=== PATIENT | male | born 1955 | race Caucasian/White ===

== ENCOUNTER 2016-11-29 05:38 | Observation (INO) ==
[2016-11-29] MEDS ORDERED: *HR* OxyCODONE/APAP 5/325 TABLET PO PRN ×2 (07:37→17:00)
[2016-11-29] MEDS ORDERED: Naloxone 0.4 MG/ML INJ IVP PRN ×2 (07:37→17:00)
[2016-11-29] MEDS ORDERED: *HR* Morphine 2 MG/ML SYRINGE IVP PRN ×2 (07:37→17:00)
[2016-11-29] MEDS ORDERED: Ondansetron 4 MG/2 ML VIAL IVP PRN ×2 (07:37→17:00)
[2016-11-29] MEDS ORDERED: *HR* Promethazine 25 MG/ML VIAL IVP PRN ×2 (07:37→17:00)
[2016-11-29] MEDS ORDERED: *HR* HYDROmorphone 2 MG/ML SYRINGE IVP PRN ×2 (07:37→17:00)
[2016-11-29] MEDS ORDERED: 0.9 % Sodium Chloride 1,000 ML IVC SCH (07:45)
--- NOTE | 2016-11-29 13:12 | Urology History & Physical ---
Date of Encounter: 11/29/16 Time of Encounter: 13:10 Assessment and Plan (1) Acute retention of urine Current Visit: No Status: Acute (2) Blood clot in bladder Current Visit: No Status: Acute I personally reviewed CT scan images. It does appear he has a large to moderate volume of clot in his bladder. The images are very grainy based on his size. I discussed placing a hematuria catheter at the bedside and attempted to irrigate the residual clot. States he's not comfortable with this plan is he experienced significant discomfort with the placement of the catheter in the emergency room. We'll proceed with an operating room cystoscopy, clot evacuation, fulguration. Hopefully we will be able to determine the etiology for the gross hematuria. We did discuss the potential for a urothelial malignancy History of Present Illness Chief complaint: gross hematuria. HPI: Mr. Mullen is a 61 year old male admitted to urology service currently after transfer from [place] emergency room with clot retention. Patient states he suddenly developed gross dark bloody urine yesterday. With clots. Unable to void. Catheter placed with return of large volume of bloody urine. Attempted to irrigate clots at the emergency room but unsuccessful. Transferred for higher acuity care. Patient reports she had one episode of gross hematuria approximately 1 year ago but it was not worked up. CT stone protocol was negative except for likely clots within the bladder. Patient reports no anticoagulation use except for aspirin. Possible history kidney stones. No history of urologic malignancy Past Med Surg Social Fam HX - Past Medical History Medical history: asthma, COPD, diabetes, hypertension, other Psychiatric history: anxiety, depression - Past Surgical History Surgical History: other - Social History Smoking Status: Former smoker Smokeless Tobacco Status: No Alcohol use: none Drug use: none - Family History Father Hx Family Cardiac Disorders: Yes (heart attack) Brother Living Status: Hx Family Cardiac Disorders: Yes (heart attack) Medications and Allergies Metformin [Glucophage] 500 mg PO BID #0 02/17/16 [History] Levothyroxine [Synthroid] 250 mcg PO DAILY 08/14/16 [History] Aspirin 81 mg PO DAILY 30 Days 08/17/16 [Rx] Metoprolol [Lopressor] 25 mg PO BID 30 Days 08/17/16 [Rx] Atorvastatin [Lipitor] 40 mg PO DAILY 11/29/16 [History] Allergies No Known Allergies Allergy (Verified 02/17/16 01:55) Review of Systems - Constitutional no chills, no fever(s) - EENT Nose, mouth and throat: no dizziness - Cardiovascular no chest pain - Respiratory no cough - Gastrointestinal abdominal pain - Genitourinary hematuria, urinary hesitancy - Integumentary no erythema - Neurological no confusion - Psychiatric no anxiety - Hematologic/Lymphatic no easy bleeding - Allergic/Immunologic no throat swelling Exam Initial Vital Signs Temp Pulse Resp BP Pulse Ox 97.7 F 80 17 104/71 92 L 11/29/16 07:38 11/29/16 07:38 11/29/16 07:38 11/29/16 07:38 11/29/16 07:38 - General physical appearance Present: well developed, no distress - Eyes Present: PERRL - ENT Present: normal nares - Neck Present: no masses - Respiratory Present: normal respiratory effort - Abdomen Abdomen: Present: soft - Genitourinary normal penis with no external lesions Urethral meatis: Present: patent, other (Brasher catheter in place. [address]- [address]. Dark hematuria. Able to irrigate some blackish clot but not a significant amount.) - Integumentary Present: no rash - Neurologic Present: normal coordination. Absent: disoriented, confused Urology Results - Labs Abnormal lab results POC Glucose 133 (58-89) H 11/29/16 07:58 All other labs normal.
--- NOTE | 2016-11-29 16:05 | Anesthesia Evaluation PreOp ---
Date of Encounter: 11/29/16 Time of Encounter: 16:10 - Past History Planned Operation: Evacuation of Bladder Clot Cardiac History: HTN, Hyperlipidemia Pulmonary History: Asthma, COPD CABLE RIGGER History: Denies Any Significant HX Other Medical History: Diabetes Type II, Thyroid Anesthesia History: No Prior Anesthetic Complications Alcohol Use: none Drug use: none Medications and Allergies Metformin [Glucophage] 500 mg PO BID #0 02/17/16 [History] Levothyroxine [Synthroid] 250 mcg PO DAILY 08/14/16 [History] Aspirin 81 mg PO DAILY 30 Days 08/17/16 [Rx] Metoprolol [Lopressor] 25 mg PO BID 30 Days 08/17/16 [Rx] Atorvastatin [Lipitor] 40 mg PO DAILY 11/29/16 [History] Allergies No Known Allergies Allergy (Verified 02/17/16 01:55) - Meds/Allergy Pre-op Review Medications Reviewed: Yes Allergies Reviewed: Yes Beta Blockers on Current Med List: Yes (Not given due to bleeding) Anesthesia Results - Labs Laboratory Tests 11/29/16 11/29/16 11/29/16 02:54 02:54 02:54 Hgb 12.7 L Hct 39.7 Plt Count 203 PT 12.7 H INR 1.2 Sodium 138 Potassium 4.3 BUN 19 Creatinine 0.83 - Imaging EKG: report reviewed (Sinus Tach woth occ PVC) Additional studies: Heart Cath done for abnormal stress test EF 60% minimal CAD Anesthesia Exam O2 Sat Height 1.96 m Weight 181.8 kg O2 Sat by Pulse Oximetry 94 O2 Sat by Pulse Oximetry 92 Vital Signs Temp Pulse Resp BP Pulse Ox 97.7 F 80 17 104/71 92 L 11/29/16 07:38 11/29/16 07:38 11/29/16 07:38 11/29/16 07:38 11/29/16 07:38 Height: 6'5 Weight: 400 lbs NPO (# of Hours): MN Pain Scale: 1 - HEENT Pupil (Motor): Pupils equal, EOMI Mallampati: III Teeth: Missing Oral Opening: Less than or equal to 3 - CABLE RIGGER LOC: Oriented CABLE RIGGER Motor: Normal RUE, Normal LUE, Normal RLE, Normal LLE, Normal Face CABLE RIGGER Sensory: Normal: RUE, LUE, RLE, LLE, Face - Cardiac Rhythm: Regular Murmur: None JVD: No Carotid Bruit: No - Pulmonary Breath Sounds: bilateral Clear Respiratory Effort: Symmetrical Anesthesia Assess/Plan ASA Score: 3 (HTN Asthma DM) Modified Citlaly Scale for Level of Consciousness: Cooperative, oriented, and tranquil Anesthetic Plan: General Monitoring Plan: Standard Monitors Recovery Plan: PACU (Discussed GA, agrees to proceed)
[2016-11-29] MEDS ORDERED: Albuterol 2.5 MG/3 ML NEBULIZER IH ONE ×2 (16:13→17:00)
[2016-11-29] MEDS ORDERED: Ringers Solution, Lactated 1,000 ML IVC SCH ×2 (16:15→17:00)
[2016-11-29] MEDS ORDERED: *HR* FentaNYL (PF) 100 MCG/2 ML VIAL ONE (16:19)
[2016-11-29] MEDS ORDERED: *HR* Midazolam HCl 2 MG/2 ML VIAL ONE (16:19)
[2016-11-29] MEDS ORDERED: *HR* Propofol 200 MG/20 ML VIAL IVP ONE ×2 (16:20→16:44)
[2016-11-29] MEDS ORDERED: Dextrose Gel 15 GM PO PRN ×2 (17:00)
[2016-11-29] MEDS ORDERED: D5% in Water 1,000 ML IV PRN (17:00)
[2016-11-29] MEDS ORDERED: *HR* Dextrose 50 % in Water (Syg) 50 ML SYRINGE IVP PRN (17:00)
[2016-11-29] MEDS ORDERED: *HR* HYDROmorphone (PF) 1 MG/ML SYRINGE IVP PRN (17:20)
[2016-11-29] MEDS ORDERED: Ondansetron 4 MG/2 ML VIAL IVP ONE (17:20)
[2016-11-29] MEDS ORDERED: *HR* Labetalol 100 MG/20 ML MDV IVP PRN (17:20)
[2016-11-29] MEDS ORDERED: Ipratropium/Albuterol Neb 3 ML ONE (17:25)
--- NOTE | 2016-11-29 17:50 | Anesthesia Evaluation Post Op ---
Date of Encounter: 11/29/16 Time of Encounter: 17:50 - Vital Signs Vital Signs: Vital Signs/O2 Sat/Glucose, Most Current Temp Pulse Resp BP Pulse Ox 11/29/16 17:35 85 16 90/68 93 L 11/29/16 17:25 97.3 F L 84 16 99/36 97 - Lungs Lungs: Clear Ascult./Percussion - Airway Airway: Non-obstructed - Cardiovascular Regular Rate - Mental Status Mental Status: Alert & Oriented, Answers Appropriately - Pain Pain Scale: 0 - Nausea Vomiting Nausea Vomiting: Not Present - Hydration Hydration: Ice chips - Discharge PostOp Status: Transfer Patient to floor
[2016-11-29] MEDS: 0.9 % Sodium Chloride 1,000 ML IVC SCH (18:33)
[2016-11-29] MEDS: Insulin LISPRO 300 UNITS/3 ML VIAL SQ SCH (18:35)
--- NOTE | 2016-11-29 20:13 | Operative Note ---
Date of procedure: 11/29/16 Pre-op diagnosis: Clot retention Post-op diagnosis: same Procedure: ystoscopy with clot evacuation, fulguration of the prostate, incision of bladder neck Anesthesia: GETA Surgeon: Sergio Marie Estimated blood loss (cc): 10 Specimen: None Condition: stable Disposition: PACU Procedure in Detail: PROCEDURE IN DETAIL: Patient was taken back to the operating room, positioned supine on the operating table. Anesthesia was applied without complication. They were moved into dorsal lithotomy. Careful attention was maintained to cushion all pressure points for patient's safety. They were prepped and draped in sterile fashion. Time-out was performed with the proper patient and procedure. A 24 Lao resectoscope with visual obturator was inserted into the bladder. Patient had a fairly large prostate but extremely elevated bladder neck. I had difficulty navigating over the bladder neck to guide the scope into the bladder. I eventually performed an incision of the bladder neck which allowed me to more easily maneuver the scope into the bladder, evacuate the clots, and survey the bladder. I also suspect this will aid the patient with voiding in the future. Patient had a moderate amount of clot which I was able to evacuate through the resectoscope using the Germania syringe. I did not visualize any evidence of urothelial malignancy or other foreign bodies within the bladder. There was moderate trabeculations. I incised the bladder neck using a 22 monopolar loop on a setting 80/80. It appeared the bleeding was from the prostate or bladder neck and I fulgurated the prostatic urethra. Good hemostasis was maintained after the procedure. 24 Lao three-way Brasher catheter placed with return of clear urine.
[2016-11-30] MEDS: 0.9 % Sodium Chloride 1,000 ML IVC SCH (00:15)
--- NOTE | 2016-11-30 06:52 | Discharge Summary ---
Date of Encounter: 11/30/16 Time of Encounter: 06:50 - Discharge Diagnosis (1) Acute retention of urine Priority: Primary Status: Resolved (2) Blood clot in bladder Priority: Secondary Status: Resolved - Discharge Medications Prescriptions: Cefdinir [Omnicef] 300 mg PO BID #14 capsule OxyCODONE/APAP 5/325 [Percocet 5/325 MG] 1 each PO Q4H PRN #20 tablet PRN Reason: Moderate Pain Home Medications: Metformin [Glucophage] 500 mg PO BID #0 02/17/16 [History] Levothyroxine [Synthroid] 250 mcg PO DAILY 08/14/16 [History] Metoprolol [Lopressor] 25 mg PO BID 30 Days 08/17/16 [Rx] Atorvastatin [Lipitor] 40 mg PO DAILY 11/29/16 [History] Cefdinir [Omnicef] 300 mg PO BID #14 capsule 11/30/16 [Rx] OxyCODONE/APAP 5/325 [Percocet 5/325 MG] 1 each PO Q4H PRN #20 tablet 11/30/16 [ Rx] Allergies/Adverse Reactions: Allergies No Known Allergies Allergy (Verified 02/17/16 01:55) Labs on day of discharge: Labs from last 24 hours 11/29/16 11/29/16 11/29/16 21:13 18:34 07:58 POC Glucose 143 H 100 H 133 H Date of admission: 11/29/16 07:33 Primary care physician: Naseem Jang CNP Discharging clinician: Sergio Marie Anticipated date of discharge: 11/30/16 - Patient Status Disposition: Home, Self-Care Condition: Good Functional capacity at discharge: independent ambulation Overall status at discharge: patient is progressing back to baseline - Discharge Instructions Follow Up With: Naseem Jang CNP [Primary Care Provider] - Sergio Marie MD [Partnered Physician] - (sunday for voiding trial) Additional Instructions: expect some pink or light red color to the urine. this is normal. call if dark red. keep cath in place until sunday. - Diet and Activity Activity: increase activity as tolerated Diet: diabetic diet - Hospital Course Hospital course: Mr. Mullen is a 61 year old male admitted with clot retention. s/p clot evacuation and fulguration. urine clear this AM. doing well without complaints. - Time Spent with Patient Total time spent providing and/or coordinating discharge services: Less than 30 minutes Exam Initial Vital Signs Temp Pulse Resp BP Pulse Ox 97.7 F 80 17 104/71 92 L 11/29/16 07:38 11/29/16 07:38 11/29/16 07:38 11/29/16 07:38 11/29/16 07:38 - General physical appearance Present: well developed, no distress - Additional Findings urine clear. slow CBI - VTE Documentation of Mechanical Device: Intermittent pneumatic compression device
[2016-11-30 07:37] VITALS: BP 112/67
[2016-11-30] MEDS: Insulin LISPRO 300 UNITS/3 ML VIAL SQ SCH (08:54)
--- NOTE | 2016-11-30 12:48 | Electrocardiograph Report ---
[place] [id number] Test Date: 2016-11-29 Pat Name: Ventura Mullen Department: 112 Room: 2A25 Gender: M Storage Administrator: : [id number] Requested By: Sergio Marie Order Number: [id number] Reading MD: Tru Pierce MD Measurements Intervals [place] Rate: 69 P: 72 MT: 189 QRS: -12 QRSD: 98 T: 37 QT: 422 QTc: 442 Interpretive Statements SINUS RHYTHM Electronically Signed On 11-30-2016 12:46:14 EDT by Tru Pierce MD
== END 2016-11-30 12:52 | disposition home or self-care (01) ==
LOC: 2ANU
PROVIDERS: ADMIT Urology; ATTEND Urology

== ENCOUNTER 2017-03-29 16:00 | Inpatient (IN) ==
--- NOTE | 2017-03-29 17:33 | Pulmonology History & Physical ---
<Arik Villanueva - Last Filed: 03/29/17 17:39> Date of Encounter: 03/29/17 History of Present Illness HPI: Mr. Mullen is a 61 year old male Medications and Allergies Furosemide [Lasix] 40 mg PO DAILY 03/29/17 [History] Levofloxacin [Levaquin] 500 mg PO DAILY 03/29/17 [History] Levothyroxine [Synthroid] 275 mcg PO DAILY 03/29/17 [History] metFORMIN [Glucophage] 500 mg PO BIDWM 03/29/17 [History] predniSONE [PredniSONE] 5 mg PO DAILY 03/29/17 [History] Allergies No Known Allergies Allergy (Verified 03/29/17 09:55) All Systems: A 10-system review of systems was performed and is negative for pertinent findings except as documented above in the HPI. - Attending Attestation I examined this patient and my medical decision-making was reviewed with the TRANSIT POLICE OFFICER/PA/Advanced Practice Nurse/Resident Physician. I agree with the documented findings, disposition and treatment plan as described except to the extent set forth below. Patient seen and examined. Labs, radiology, chart personally reviewed. Agree with resident's history and physical, assessment, plan with following comments: CORNER CUTTER: Patient follows commands, Pulmonary: Acceptable oxygenation and ventilation. Patient has history of pneumonia and COPD. Resume his COPD medication and keep SPO2 around 90% with incentive spirometry for atelectasis. The patient has been treated for pneumonia with chest x-ray not very impressive for pneumonia for now will empirically treat with Zosyn and cultures. Patient has been treated with multiple rounds of pneumonia. I do not feel the patient has COPD exacerbation at this point. Cardiovascular: Blood pressure fluctuate, however patient is sitting and talking with no evidence of hypoperfusion. GI: Nutrition per dietary and GI prophylaxis per routine Heme: DVT prophylaxis per routine ID: Continue antibiotics and plan to de-escalation. Lactic acid within normal range Renal; urine out put and renal funtion reviewed. I suspect patient could have hypovolemia and will give him more fluid before starting chemotherapy vasopressors Endorcine: blood glucose is monitored Lines: all lines checked and no evidence of infections Skin: skin care to prevent pressure ulcers per nursing routine care Will monitor patient in ICU for next 24 hours. <Christiana Lewis - Last Filed: 03/29/17 18:45> Date of Encounter: 03/29/17 Time of Encounter: 17:33 Assessment and Plan (1) Hypotension Current visit: Yes Status: Acute Patient states he was outside today working whenever he twisted and became dizzy and had some blurred vision. He does chronically take Lasix. He appears to be dry. He was sent from [facility] for possible sepsis. He is tachycardic and mildly hypotensive body see her. However he is maintaining a map greater than 55. He is mentating appropriately. I do not find a source of infection at this time. His chest x-ray shows some atelectasis and a pleural effusion that is resolving. Probably this is a COPD exacerbation at this time. We will cover him for possible pneumonia pending cultures. Plan: Blood and sputum cultures Antibiotics Zosyn Maintenance fluids 150 an hour Fluid bolus if needed for hypertension Symbicort and DuoNeb's Omeprazole for GI prophylaxis Heparin for DVT prophylaxis Incentive spirometry (2) COPD (chronic obstructive pulmonary disease) Current visit: No Status: Chronic I do not believe this is a COPD exacerbation. We will continue patient on home medications. (3) Hypothyroidism Current visit: No Status: Chronic Chronic, we will continue patient's home Synthroid dose. (4) Diabetes Current visit: Yes Status: Chronic Qualifiers: Diabetes mellitus type: type 2 Diabetes mellitus complication status: without complication Diabetes mellitus usp insulin use: without technician terminal and repeater use Qualified Code(s): E11.9 - Type 2 diabetes mellitus without complications (5) Pleural effusion, left Current visit: No Status: Acute This appears to be resolving. Plan as above History of Present Illness HPI: Mr. Mullen is a 61 year old male presenting via EMS from [facility] for possible sepsis. He was given 3 L of fluid there and placed on dopamine for hypotension. He states this morning he went outside and was working and twisted and became very dizzy and had blurry vision. He states he is recently been at [facility] and was diagnosed with something worse than pneumonia. He is unaware what this is. He does have a history of COPD. He takes several inhalers but does not work oxygen at home. He states he is not overtly short of breath at this time. His does report of cough but minimal sputum. He states he has been on 2 rounds of antibiotics since he was discharged from [facility]. He believes this antibiotic is Levaquin. We stopped the dopamine and patient arrived at the hospital. He is maintaining a map of greater than 55 and mentating appropriately. Patients chest x-ray does not show a pneumonia. Looks more like an atelectasis. We will continue patients antibiotics of Zosyn here. We are stopping the pressors and will give him a fluid bolus if his blood pressure does decrease. We will start him on maintenance fluids. He does appear to be slightly dehydrated. He is on Lasix at home. Past Med Surg Social Fam HX - Past Medical History Medical history: arthritis, CHF, COPD, diabetes, hypertension, other Psychiatric history: anxiety, depression - Past Surgical History Surgical History: other - Social History Smoking Status: Former smoker Smokeless Tobacco Status: No Alcohol use: none Drug use: none - Family History Father Hx Family Cardiac Disorders: Yes (heart attack) Brother Living Status: Hx Family Cardiac Disorders: Yes (heart attack) All Systems: A 10-system review of systems was performed and is negative for pertinent findings except as documented above in the HPI. - Constitutional Constitutional: chills (One episode yesterday.), weakness (One episode today.) - EENT Eyes: no loss of peripheral vision, no loss of vision Nose, mouth and throat: dizziness (One episode earlier today. Resolved at this time.) - Cardiovascular Cardiovascular: no chest pain, no chest pain at rest, no chest pain with activity, no dyspnea, no edema, no syncope - Respiratory Respiratory: cough, dyspnea (Denies at this time.) - Gastrointestinal Gastrointestinal: no abdominal pain, no diarrhea, no loose stools, no nausea, no vomiting - Musculoskeletal Musculoskeletal: no weakness Physical Examination General appearance: no acute distress, other (Appears well and is sitting at the edge of the bed. In no distress.) Eyes: nonicteric ENT: oropharynx dry Neck: supple Effort: normal Inspection: normal Auscultation: bilateral: clear (Except noted), other (Mild crackles at left base.) Cardiovascular: regular rate and rhythm (Tachycardic) Gastrointestinal: normoactive bowel sounds, soft, non-tender, non-distended Integumentary: normal Extremities: no cyanosis, no edema, pink and warm, pulses normal Musculoskeletal: no deformities Gait: normal gait, normal posture normal mental status, non-focal exam, pupils equal and round mood appropriate, affect normal
[2017-03-29] MEDS ORDERED: Ipratropium/Albuterol Neb 3 ML IH PRN (17:38)
[2017-03-29] MEDS ORDERED: Ondansetron 4 MG/2 ML VIAL IVP PRN (17:43)
[2017-03-29] MEDS: 0.9 % Sodium Chloride 1,000 ML IVC SCH ×3 (18:06→20:50)
[2017-03-29] MEDS: Piperacillin/Tazobactam 3.375 GM in D5% in Water (Mini-Bag+) 100 ML IVPB SCH (18:09)
[2017-03-29] MEDS ORDERED: *HR* Dextrose 50 % in Water (Syg) 50 ML SYRINGE IVP PRN (18:37)
[2017-03-29] MEDS ORDERED: D5% in Water 1,000 ML IVC PRN (18:37)
[2017-03-29] MEDS ORDERED: Dextrose Gel 15 GM PO PRN ×2 (18:37)
[2017-03-29] MEDS ORDERED: Acetaminophen 325 MG TABLET PO PRN (20:51)
[2017-03-29] MEDS: Budesonide/Formoterol 160/4.5 MDI IH SCH (20:58)
[2017-03-29] MEDS: *HR* Heparin 5,000 UNIT/ML VIAL SQ SCH (20:58)
[2017-03-29] MEDS: Ipratropium/Albuterol Neb 3 ML IH SCH (20:58)
[2017-03-29] MEDS: Insulin LISPRO 300 UNITS/3 ML VIAL SQ SCH (23:29)
[2017-03-30] MEDS: Ipratropium/Albuterol Neb 3 ML IH SCH ×4 (03:27→22:11)
[2017-03-30] MEDS: 0.9 % Sodium Chloride 1,000 ML IVC SCH (04:23)
[2017-03-30 04:55] LABS: Red Cell Distribution Width 19.6 % (11.5-14.5)
[2017-03-30 04:57] LABS: Basophils % 1.1 %; Eosinophils % 0.6 %; Hematocrit 31.8 % (37.5-50.1); Hemoglobin 9.7 g/dL (12.9-16.9); Lymphocytes # 0.4 K/mcL (0.6-4.6); Lymphocytes % 24.7 %; Mean Corpuscular HGB Conc 30.5 g/dL (31.6-35.5); Mean Corpuscular Hemoglobin 30.1 pg (28.0-33.3); Mean Corpuscular Volume 98.8 fL (83.0-100.0); Mean Platelet Volume 10.3 fL (9.4-12.4); Monocytes # 0.6 K/mcL (0.0-1.3); Monocytes % 34.5 %; Neutrophils # 0.5 K/mcL (1.6-8.9); Red Blood Count 3.22 M/mcL (4.19-5.50); Segmented Neutrophils % 31.1 %
[2017-03-30 05:07] LABS: BUN/Creatinine Ratio 25 (6-26); Blood Urea Nitrogen 20 mg/dL (8-26); Calcium 8.2 mg/dL (8.6-10.8); Carbon Dioxide 23 mEq/L (19-29); Chloride 110 mEq/L (98-109); Glucose 90 mg/dL (70-99); Osmolality,Calculated 286 (280-300); Potassium 3.8 mEq/L (3.5-4.5); Sodium 137 mEq/L (136-145); eGFR For African Americans > 60 (> 60); eGFR For Non-African Americans > 60 (> 60)
[2017-03-30] MEDS: Insulin LISPRO 300 UNITS/3 ML VIAL SQ SCH ×3 (05:32→17:54)
[2017-03-30 05:55] LABS: Platelet Count 97 K/mcL (140-400)
[2017-03-30 05:59] LABS: Platelet Estimate Decreased (Normal)
[2017-03-30] MEDS: Piperacillin/Tazobactam 3.375 GM in D5% in Water (Mini-Bag+) 100 ML IVPB SCH (05:59)
[2017-03-30] MEDS: *HR* Heparin 5,000 UNIT/ML VIAL SQ SCH ×3 (06:00→21:27)
[2017-03-30] MEDS ORDERED: LEVOTHYROXINE PO SCH ×2 (06:00→06:30)
--- NOTE | 2017-03-30 08:49 | Pulmonology Progress Note ---
<Christiana Lewis - Last Filed: 03/30/17 13:28> Date of Encounter: 03/30/17 Time of Encounter: 08:52 Assessment and Plan (1) Hypotension Current Visit: Yes Status: Resolved Patient states he was outside today working whenever he twisted and became dizzy and had some blurred vision. He does chronically take Lasix. He appears to be dry. He was sent from [place] for possible sepsis. He was tachycardic and mildly hypotensive on arrival. However he is maintaining a map greater than 55. He is mentating appropriately. I do not find a source of infection at this time. His chest x-ray shows some atelectasis and a pleural effusion that is resolving. Probably this is a COPD exacerbation at this time. We will cover him for possible pneumonia pending cultures. Patient remained normotensive overnight. His hypotension was likely secondary to dehydration. Plan: Blood and sputum cultures Antibiotics Zosyn Symbicort and DuoNeb's Omeprazole for GI prophylaxis Heparin for DVT prophylaxis Incentive spirometry Home dose Synthroid Outpatient sleep apnea evaluation Qualifiers: Hypotension type: unspecified hypotension type Qualified Code(s): I95.9 - Hypotension, unspecified (2) COPD (chronic obstructive pulmonary disease) Current Visit: Yes Status: Chronic I do not believe this is a COPD exacerbation. We will continue patient on home medications. Qualifiers: COPD type: chronic bronchitis Chronic bronchitis type: simple Qualified Code(s): J41.0 - Simple chronic bronchitis (3) Hypothyroidism Current Visit: Yes Status: Chronic Chronic, we will continue patient's home Synthroid dose. 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 Plan as above Subjective Interval history: Patient was normotensive throughout the night. Of note his oxygen saturation did decrease throughout the night. It appears as if the patient may have a undiagnosed sleep apnea. This will likely need to be worked up outpatient. The patient has been made aware of this and he expresses understanding. We will move the patient to the floor today. He shows no signs of infection. His white count did decrease today to 1.2. He did have a large amount of fluid yesterday. This is likely of a delusional effect. The hospitalist has been made aware of this. 08:52 Sign out was given to Dr Barlow. She is requesting a CBC to be drawn at noon and states that she will follow up with this. Objective PUL Vital signs: Last Vital Signs Temp 96.7 F L 03/30/17 07:56 Pulse 71 03/30/17 08:00 Resp 20 03/30/17 08:00 BP 126/93 03/30/17 08:00 Pulse Ox 88 03/30/17 08:00 General appearance: no acute distress Eyes: nonicteric ENT: oropharynx moist Neck: supple Effort: normal Auscultation: bilateral: clear Cardiovascular: regular rate and rhythm Gastrointestinal: normoactive bowel sounds, soft, non-tender, non-distended Integumentary: normal Extremities: no cyanosis, no edema, no clubbing, pink and warm, pulses normal, no ischemia or petechiae Musculoskeletal: no deformities Gait: normal posture normal mental status, non-focal exam, pupils equal and round, CN II-XII normal, motor strength normal and symmetric mood appropriate, affect normal Results - Laboratory Findings CBC and BMP: 03/30/17 04:39 03/30/17 04:39 Abnormal lab findings: Abnormal lab results WBC 1.7 K/mcL (4.3-11.1) L D 03/30/17 04:39 RBC 3.22 M/mcL (4.19-5.50) L 03/30/17 04:39 Hgb 9.7 g/dL (12.9-16.9) L D 03/30/17 04:39 Hct 31.8 % (37.5-50.1) L 03/30/17 04:39 MCHC 30.5 g/dL (31.6-35.5) L 03/30/17 04:39 RDW 19.6 % (11.5-14.5) H 03/30/17 04:39 Plt Count 97 K/mcL (140-400) L 03/30/17 04:39 Immature Gran % 8.0 % (0-4) H 03/30/17 04:39 Neutrophils # 0.5 K/mcL (1.6-8.9) L 03/30/17 04:39 Lymphocytes # 0.4 K/mcL (0.6-4.6) L 03/30/17 04:39 Platelet Estimate Decreased (Normal) L 03/30/17 04:39 Chloride 110 mEq/L (98-109) H 03/30/17 04:39 POC Glucose 103 (58-89) H 03/30/17 05:07 Calcium 8.2 mg/dL (8.6-10.8) L 03/30/17 04:39 - Clinical Findings Intake & Output: Intake & Output 03/29/17 03/30/17 03/30/17 23:59 07:59 15:59 Intake Total 2700 / 2700 1000 / 1000 480 / 480 Output Total 500 / 500 1525 / 1525 475 / 475 Balance 2200 / 2200 -525 / -525 5 / 5 Weight 136 kg 136.3 kg Consult Discharge Plan - Plan Referrals: NO,PCP [Primary Care Provider] - <Arik Villanueva - Last Filed: 03/30/17 15:32> Date of Encounter: 03/30/17 Objective PUL Vital signs: Last Vital Signs Temp 98.1 F 03/30/17 15:11 Pulse 79 03/30/17 15:11 Resp 16 03/30/17 15:11 BP 114/68 03/30/17 15:11 Pulse Ox 97 03/30/17 15:11 Results - Laboratory Findings CBC and BMP: 03/30/17 04:39 03/30/17 04:39 Abnormal lab findings: Abnormal lab results WBC 1.7 K/mcL (4.3-11.1) L D 03/30/17 04:39 RBC 3.22 M/mcL (4.19-5.50) L 03/30/17 04:39 Hgb 9.7 g/dL (12.9-16.9) L D 03/30/17 04:39 Hct 31.8 % (37.5-50.1) L 03/30/17 04:39 MCHC 30.5 g/dL (31.6-35.5) L 03/30/17 04:39 RDW 19.6 % (11.5-14.5) H 03/30/17 04:39 Plt Count 97 K/mcL (140-400) L 03/30/17 04:39 Immature Gran % 8.0 % (0-4) H 03/30/17 04:39 Neutrophils # 0.5 K/mcL (1.6-8.9) L 03/30/17 04:39 Lymphocytes # 0.4 K/mcL (0.6-4.6) L 03/30/17 04:39 Platelet Estimate Decreased (Normal) L 03/30/17 04:39 Chloride 110 mEq/L (98-109) H 03/30/17 04:39 POC Glucose 103 (58-89) H 03/30/17 05:07 Calcium 8.2 mg/dL (8.6-10.8) L 03/30/17 04:39 - Clinical Findings Intake & Output: Intake & Output 03/29/17 03/30/17 03/30/17 23:59 07:59 15:59 Intake Total 2700 / 2700 1000 / 1000 1580 / 1580 Output Total 500 / 500 1525 / 1525 875 / 875 Balance 2200 / 2200 -525 / -525 705 / 705 Weight 136 kg 136.3 kg - Attending Attestation I examined this patient and my medical decision-making was reviewed with the TANK BUILDER/PA/Advanced Practice Nurse/Resident Physician. I agree with the documented findings, disposition and treatment plan as described except to the extent set forth below. Patient seen and examined. Labs, radiology, chart personally reviewed. 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 I have low suspicion for patient to have pneumonia and once cultures come back negative then antibiotics can be stopped. Advised him to follow-up as outpatient regarding treatment of his obstructive sleep apnea. Cardiovascular: stable GI: Nutrition per dietary and GI prophylaxis per routine Heme: DVT prophylaxis per routine ID: Continue antibiotics and plan to de-escalation Renal; urine out put and renal funtion reviewed Endorcine: blood glucose is monitored Lines: all lines checked and no evidence of infections Skin: skin care to prevent pressure ulcers per nursing routine care Patient hemodynamically stable and was transferred to the floor.
[2017-03-30] MEDS ORDERED: Dextrose Gel 15 GM PO PRN ×2 (11:26)
[2017-03-30] MEDS ORDERED: D5% in Water 1,000 ML IVC PRN (11:26)
[2017-03-30] MEDS ORDERED: Ipratropium/Albuterol Neb 3 ML IH PRN (11:26)
[2017-03-30] MEDS ORDERED: *HR* Dextrose 50 % in Water (Syg) 50 ML SYRINGE IVP PRN (11:26)
[2017-03-30] MEDS ORDERED: Ondansetron 4 MG/2 ML VIAL IVP PRN (11:26)
[2017-03-30] MEDS ORDERED: Piperacillin/Tazobactam 3.375 GM in D5% in Water (Mini-Bag+) 100 ML IVPB SCH (14:00)
[2017-03-30] MEDS: Budesonide/Formoterol 160/4.5 MDI IH SCH ×2 (16:11→22:12)
[2017-03-30 16:24] LABS: Acinetobacter baumannii by PCR Not Detected (Not Detect); Candida albicans by PCR Not Detected (Not Detect); Candida glabrata by PCR Not Detected (Not Detect); Candida krusei by PCR Not Detected (Not Detect); Candida parapsilosis by PCR Not Detected (Not Detect); Candida tropicalis by PCR Not Detected (Not Detect); Escherichia coli by PCR Not Detected (Not Detect); Klebsiella oxytoca by PCR Not Detected (Not Detect); Klebsiella pneumoniae by PCR Not Detected (Not Detect); Pseudomonas aeruginosa by PCR Not Detected (Not Detect); Serratia marcescens by PCR Not Detected (Not Detect); mecA Methicillin-Resist Gene ***DETECTED*** (Not Detect)
[2017-03-30 16:25] LABS: Enterococcus by PCR Not Detected (Not Detect); Staphylococcus aureus by PCR Not Detected (Not Detect); Streptococcus agalactiae(B)PCR Not Detected (Not Detect); Streptococcus by PCR Not Detected (Not Detect); Streptococcus pneumoniae PCR Not Detected (Not Detect); Streptococcus pyogenes (A) PCR Not Detected (Not Detect)
[2017-03-30] MEDS ORDERED: Vancomycin 2,000 MG in D5% in Water 250 ML IVPB SCH (17:00)
--- NOTE | 2017-03-30 17:23 | Electrocardiograph Report ---
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
[2017-03-30] MEDS: Vancomycin 2,000 MG in D5% in Water 500 ML IVPB SCH (18:04)
[2017-03-30] MEDS: Acetaminophen 325 MG TABLET PO PRN (21:31)
[2017-03-31] MEDS: Insulin LISPRO 300 UNITS/3 ML VIAL SQ SCH ×4 (00:20→17:23)
[2017-03-31] MEDS: Ipratropium/Albuterol Neb 3 ML IH SCH ×4 (04:04→21:42)
[2017-03-31] MEDS: LEVOTHYROXINE PO SCH (05:26)
[2017-03-31] MEDS: *HR* Heparin 5,000 UNIT/ML VIAL SQ SCH ×3 (05:27→21:42)
[2017-03-31] MEDS: Vancomycin 2,000 MG in D5% in Water 500 ML IVPB SCH (05:27)
[2017-03-31] MEDS: Budesonide/Formoterol 160/4.5 MDI IH SCH ×2 (11:12→21:42)
--- NOTE | 2017-03-31 11:45 | Pulmonology Progress Note ---
Date of Encounter: 03/31/17 Time of Encounter: 11:42 Assessment and Plan (1) Hypotension Current Visit: Yes Status: Resolved Hypotension resolved, etiology uncertain hence transferred out of the ICU. Note positive PCR (1/2) for MRSA hence Vancomycin continued. If culture is negative through next 24 hours, suggest D/C ATB Qualifiers: Hypotension type: unspecified hypotension type Qualified Code(s): I95.9 - Hypotension, unspecified Code(s): I95.9 - Hypotension, unspecified SNOMED Code(s): 43592117 (2) COPD (chronic obstructive pulmonary disease) Current Visit: Yes Status: Chronic COPD "stable" with current RX, suggest no changes. Qualifiers: COPD type: chronic bronchitis Chronic bronchitis type: simple Qualified Code(s): J41.0 - Simple chronic bronchitis Code(s): J44.9 - Chronic obstructive pulmonary disease, unspecified SNOMED Code(s): 97702252 (3) Pleural effusion, left Current Visit: Yes Status: Acute History of left parapneumonic pleural effusion necessitating chest tube placement accompanied by respiratory failure (teated at [facility] December 2016). The current CXR reveals residual pleural thickening and perhaps residual air spce disease but doubt active pneumonia. I suggest an outpatient bronchoscopy in near future to ensure absence of malignancy or resistant pathogen to account for "chronic pneumonia" syndrome. Code(s): J90 - Pleural effusion, not elsewhere classified SNOMED Code(s): 08348617 Subjective Principal diagnosis: Hypotension, COPD Interval history: Transferred from ICU after resolution of hypotension (fluid responsive). The patient feels well at this time and denies any specific compliants, inquires about discharge. Note complex prior history of left empyema (managed at [facility], chest tubes plus ATB ). since that time persistent fatigue, mild cough, dyspnea. Most recently evaluated at [facility] by pulmonary, placed on Levaquin for "respiratory infection". Objective PUL Vital signs: Last Vital Signs Temp 97.9 F 03/31/17 11:25 Pulse 83 03/31/17 11:25 Resp 16 03/31/17 11:25 BP 126/76 03/31/17 11:25 Pulse Ox 97 03/31/17 11:25 General appearance: no acute distress, other (Obese male) Eyes: nonicteric ENT: oropharynx moist Auscultation: left: diminished breath sounds (faint crackles left base) Cardiovascular: regular rate and rhythm Gastrointestinal: normoactive bowel sounds, non-distended, other (central obesity) Extremities: no cyanosis, other (mild leg edema) Musculoskeletal: no deformities normal mental status, non-focal exam Results - Laboratory Findings CBC and BMP: 03/30/17 04:39 03/30/17 04:39 Abnormal lab findings: Abnormal lab results WBC 1.7 K/mcL (4.3-11.1) L D 03/30/17 04:39 RBC 3.22 M/mcL (4.19-5.50) L 03/30/17 04:39 Hgb 9.7 g/dL (12.9-16.9) L D 03/30/17 04:39 Hct 31.8 % (37.5-50.1) L 03/30/17 04:39 MCHC 30.5 g/dL (31.6-35.5) L 03/30/17 04:39 RDW 19.6 % (11.5-14.5) H 03/30/17 04:39 Plt Count 97 K/mcL (140-400) L 03/30/17 04:39 Immature Gran % 8.0 % (0-4) H 03/30/17 04:39 Neutrophils # 0.5 K/mcL (1.6-8.9) L 03/30/17 04:39 Lymphocytes # 0.4 K/mcL (0.6-4.6) L 03/30/17 04:39 Platelet Estimate Decreased (Normal) L 03/30/17 04:39 Chloride 110 mEq/L (98-109) H 03/30/17 04:39 POC Glucose 155 (58-89) H 03/31/17 11:22 Calcium 8.2 mg/dL (8.6-10.8) L 03/30/17 04:39 Staphylococcus sp PCR DETECTED (Not Detect) A 03/29/17 18:49 mecA-Methicil Res Gene DETECTED (Not Detect) A 03/29/17 18:49 - Microbiology Findings Microbiology Findings: Microbiology, Last 48 Hours 03/29/17 18:49 Blood Culture - Preliminary Peripheral Venipuncture No growth. 03/29/17 18:49 Blood Culture - Preliminary Peripheral Venipuncture Gram Positive Cocci - Clinical Findings Intake & Output: Intake & Output 03/30/17 03/31/17 03/31/17 23:59 07:59 15:59 Intake Total 2019 Output Total 1999 1300 / 1300 Balance -1300 / -1300 Weight 135.5 kg Consult Discharge Plan - Plan Referrals: NO,PCP [Primary Care Provider] -
--- NOTE | 2017-03-31 12:24 | Internal Med Progress Note ---
Date of Encounter: 03/31/17 Time of Encounter: 12:20 - Assessment and plan (1) Hypotension Current Visit: Yes Status: Resolved Assessment and plan: Unclear etiology Resolved now Could be sepsis related - since he did mention about fever, dizziness symptoms At this point cont close monitoring avoid BP meds Qualifiers: Hypotension type: unspecified hypotension type Qualified Code(s): I95.9 - Hypotension, unspecified (2) Pneumonia Current Visit: No Status: Chronic Assessment and plan: Cont empirical abx Zosyn and Vanco will resume to home PO abx - upon d/c home Qualifiers: Pneumonia type: due to unspecified organism Laterality: left Lung location: lower lobe of lung Qualified Code(s): J18.1 - Lobar pneumonia, unspecified organism (3) Positive blood culture Current Visit: Yes Status: Acute Assessment and plan: 2/ positive blood cx wit G+ve cocci Could be contaminated however given his recent hospitalization and current presentation with shock as well as leukopenia definitely need close f/u will f/u on repeat blood cx done today cont broad spec abx for now (4) Leukopenia Current Visit: Yes Status: Acute Assessment and plan: could be stress induced.. f/u on CBC Qualifiers: Qualified Code(s): D72.819 - Decreased white blood cell count, unspecified (5) COPD (chronic obstructive pulmonary disease) Current Visit: Yes Status: Chronic Assessment and plan: not in exacerbation cont duoneb and symbicort Qualifiers: COPD type: chronic bronchitis Chronic bronchitis type: simple Qualified Code(s): J41.0 - Simple chronic bronchitis (6) DM type 2 (diabetes mellitus, type 2) Current Visit: No Status: Chronic Assessment and plan: stable BS cont ISS resume home med Metformin Qualifiers: Diabetes mellitus complication status: with hyperglycemia Diabetes mellitus intermediate insulin use: without remote computer terminal operator use Qualified Code(s): E11.65 - Type 2 diabetes mellitus with hyperglycemia (7) Morbid obesity with BMI of 45.0-49.9, adult Current Visit: No Status: Chronic Assessment and plan: counseled to loose weight (8) Pleural effusion, left Current Visit: Yes Status: Resolved Assessment and plan: improved compare to previous CXR findings held diuretics for now due to hypotension - Subjective Interval history: Mr. Mullen is a 61 year old male presented to ER via EMS from [facility] for possible sepsis. He was given 3 L of fluid there and placed on dopamine for hypotension. He stateed that morning he went outside and was working and twisted and became very dizzy and had blurry vision. 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 He does have a history of COPD. He takes several inhalers but does not work oxygen at home. Apparently pt was in severe shock with unclear etiology, pt was initially admitted to ICU and continued aggressive IV hydration and broad spec abx. His shock resolved immediately. He denied any CP / SOB / No abd pain. No fever / chills. Would like to go home today - Constitutional Vitals: Temp Pulse Resp BP Pulse Ox 97.9 F 83 16 126/76 97 03/31/17 11:25 03/31/17 11:25 03/31/17 11:25 03/31/17 11:25 03/31/17 11:25 General appearance: Present: A&O X 3, morbidly obese, no acute distress - Respiratory Respiratory exam: Present: decreased breath sounds, wheezes. Absent: rales, respiratory distress, rhonchi - Cardiovascular Cardiovascular exam: Present: RRR, +S1, +S2. Absent: diastolic murmur, gallop, rubs, systolic murmur - GI/Abdominal GI/Abdominal exam: Present: distended, normal bowel sounds, soft. Absent: rebound, tenderness - Extremities Exam Extremities exam: Absent: calf tenderness, pedal edema, tenderness - Psychiatric Psychiatric exam: Present: normal affect, normal mood - Skin Skin exam: Present: dry. Absent: cyanosis Internal Medicine: Result - Labs CBC & Chem 7: 03/30/17 04:39 03/30/17 04:39 Consult Discharge Plan - Plan Referrals: NO,PCP [Primary Care Provider] -
[2017-03-31 13:18] LABS: Eosinophils % 1.1 %; Hematocrit 32.9 % (37.5-50.1); Hemoglobin 10.1 g/dL (12.9-16.9); Immature Granulocytes % 7.5 % (0-4); Lymphocytes # 0.8 K/mcL (0.6-4.6); Lymphocytes % 43.3 %; Mean Corpuscular HGB Conc 30.7 g/dL (31.6-35.5); Mean Corpuscular Hemoglobin 30.3 pg (28.0-33.3); Mean Corpuscular Volume 98.8 fL (83.0-100.0); Mean Platelet Volume 10.3 fL (9.4-12.4); Monocytes # 0.4 K/mcL (0.0-1.3); Monocytes % 19.8 %; Neutrophils # 0.5 K/mcL (1.6-8.9); Platelet Count 111 K/mcL (140-400); Red Blood Count 3.33 M/mcL (4.19-5.50); Segmented Neutrophils % 28.3 %
[2017-03-31 13:39] LABS: Platelet Estimate Decreased (Normal)
[2017-03-31] MEDS: *HR* Metformin 500 MG TABLET PO SCH (17:26)
[2017-03-31] MEDS ORDERED: Vancomycin 1,500 MG in D5% in Water 250 ML IVPB SCH (17:30)
[2017-03-31] MEDS ORDERED: Insulin LISPRO 300 UNITS/3 ML VIAL SQ SCH (21:00)
[2017-03-31] MEDS: Acetaminophen 325 MG TABLET PO PRN (21:42)
[2017-04-01 04:10] LABS: Hematocrit 32.9 % (37.5-50.1); Mean Corpuscular HGB Conc 30.4 g/dL (31.6-35.5); Mean Corpuscular Hemoglobin 29.9 pg (28.0-33.3); Mean Corpuscular Volume 98.2 fL (83.0-100.0); Mean Platelet Volume 10.6 fL (9.4-12.4); Platelet Count 120 K/mcL (140-400); Red Blood Count 3.35 M/mcL (4.19-5.50); Red Cell Distribution Width 18.9 % (11.5-14.5)
[2017-04-01] MEDS: Ipratropium/Albuterol Neb 3 ML IH SCH ×2 (04:13→10:31)
[2017-04-01 05:02] LABS: Eosinophils # 0.1 K/mcL (0.0-0.6); Large Platelets Present (Not Present); Lymphocytes # 0.9 K/mcL (0.6-4.6); Monocytes # 0.4 K/mcL (0.0-1.3); Neutrophils # 0.8 K/mcL (1.6-8.9); Platelet Estimate Slight Decrease (Normal)
[2017-04-01 05:03] LABS: Anisocytosis 1+ (Not Present)
[2017-04-01] MEDS ORDERED: Vancomycin 1,750 MG in D5% in Water 500 ML IVPB SCH (06:00)
[2017-04-01] MEDS: LEVOTHYROXINE PO SCH (06:01)
[2017-04-01] MEDS: *HR* Heparin 5,000 UNIT/ML VIAL SQ SCH (06:02)
[2017-04-01] MEDS: Insulin LISPRO 300 UNITS/3 ML VIAL SQ SCH ×2 (07:55→11:37)
[2017-04-01] MEDS: *HR* Metformin 500 MG TABLET PO SCH (08:04)
[2017-04-01] MEDS: Budesonide/Formoterol 160/4.5 MDI IH SCH (10:31)
--- NOTE | 2017-04-01 11:40 | Discharge Summary ---
Date of Encounter: 04/01/17 Time of Encounter: 11:38 - Discharge Diagnosis (1) Hypotension Priority: Primary Status: Resolved Qualifiers: Hypotension type: unspecified hypotension type Qualified Code(s): I95.9 - Hypotension, unspecified (2) Pneumonia Priority: Secondary Status: Chronic Comments: cont home dose of abx Qualifiers: Pneumonia type: due to unspecified organism Laterality: left Lung location: lower lobe of lung Qualified Code(s): J18.1 - Lobar pneumonia, unspecified organism (3) Positive blood culture Priority: Primary Status: Resolved Comments: Grew staph epidermidis 1/2 sets -- contaminated (4) Leukopenia Priority: Primary Status: Acute Comments: due to stress - improving Qualifiers: Qualified Code(s): D72.819 - Decreased white blood cell count, unspecified (5) COPD (chronic obstructive pulmonary disease) Priority: Secondary Status: Chronic Qualifiers: COPD type: chronic bronchitis Chronic bronchitis type: simple Qualified Code(s): J41.0 - Simple chronic bronchitis (6) DM type 2 (diabetes mellitus, type 2) Priority: Secondary Status: Chronic Qualifiers: Diabetes mellitus complication status: with hyperglycemia 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 Qualified Code(s): E11.65 - Type 2 diabetes mellitus with hyperglycemia (7) Morbid obesity with BMI of 45.0-49.9, adult Priority: Secondary Status: Chronic (8) Pleural effusion, left Priority: Secondary Status: Resolved - Discharge Medications Prescriptions: Saccharomyces Boulardii [Florastor] 250 mg PO BID #14 capsule Home Medications: Levofloxacin [Levaquin] 500 mg PO DAILY 03/29/17 [History] Levothyroxine [Synthroid] 275 mcg PO DAILY 03/29/17 [History] metFORMIN [Glucophage] 500 mg PO BIDWM 03/29/17 [History] Acetaminophen [Tylenol] 650 mg PO Q4-6H PRN 03/30/17 [History] Albuterol Sulfate [Ventolin Hfa] 1 - 2 puff IH Q4-6H PRN 03/30/17 [History] Budesonide/Formoterol 160/4.5 [Symbicort 160/4.5] 2 puff IH BIDR 03/30/17 [ History] Guaifenesin [Mucinex] 600 mg PO BID PRN 03/30/17 [History] Naproxen Sodium [Aleve] 440 mg PO BID PRN 03/30/17 [History] Furosemide [Lasix] 20 mg PO DAILY #0 04/01/17 [Rx] Saccharomyces Boulardii [Florastor] 250 mg PO BID #14 capsule 04/01/17 [Rx] Allergies/Adverse Reactions: Allergies No Known Allergies Allergy (Verified 03/29/17 09:55) Procedures/tests Complete & Pending: Procedures Performed prior 72 hours Category Date Time Status EKG [ECG 12 lead ECG] [ECG] Routine Y 03/29/17 17:43 Completed Date of admission: 03/29/17 17:24 Primary care physician: PCP NO Consults: 03/31/17 11:14 Consult to Hospitalist [CONS] Routine Consulting Provider: Hospitalist Sharonda Reason for Consult: assume care, transferred out of ICU Time Notified: 11:14 Call Completed: No - Patient Status Disposition: Home, Self-Care Condition: Fair Overall status at discharge: patient is back to baseline - Discharge Instructions Follow Up With: NO,PCP [Primary Care Provider] - - Diet and Activity Activity: increase activity as tolerated Diet: advance to your usual diet Hospital course: Mr. Mullen is a 61 year old male presented to ER via EMS from [facility] for possible sepsis. He was given 3 L of fluid there and placed on dopamine for hypotension. He stated that morning he went outside and was working and twisted and became very dizzy and had blurry vision. He stated he is recently been at [place] and was diagnosed with pneumonia and d/c home on PO Abx, and his Counselor Aid also asked him to take one more week PO Ab. He does have a history of COPD. He takes several inhalers but does not work oxygen at home. Apparently pt was in severe shock with unclear etiology, pt was initially admitted to ICU and continued aggressive IV hydration and broad spec abx. His shock resolved immediately. Pt was transferred to regular floor on following day. Pt's blood cx came back as positive 1/2 sets for Staph epidermidis - mostly contaminated. His repeat blood cx - no growth in 24rs. He remained afebrile throug out this hospitalization. His CXR was still showing LLL PNA, which seems to be chronic, does not look like any new infiltrate. Recommend to cont his home PO Abx Levofloxacin for full course. He did have leukopenia which could be due to severe stress and shock..Now his leukopneia started improving. Recommend the pt to f/u with PCP and Counselor Aid as an out pt in 1 week - Time Spent with Patient Total time spent providing and/or coordinating discharge services: - Constitutional Vitals: Temp Pulse Resp BP Pulse Ox 98.3 F 76 16 128/67 96 04/01/17 06:31 04/01/17 06:31 04/01/17 10:31 04/01/17 06:31 04/01/17 10:31 General appearance: Present: A&O X 3, morbidly obese, no acute distress - Respiratory Respiratory exam: Present: decreased breath sounds. Absent: accessory muscle use, rales, respiratory distress, rhonchi, wheezes - Cardiovascular Cardiovascular exam: Present: RRR, +S1, +S2. Absent: diastolic murmur, gallop, rubs, systolic murmur - GI/Abdominal GI/Abdominal exam: Present: distended, normal bowel sounds, soft. Absent: tenderness - Extremities Exam Extremities exam: Absent: calf tenderness, pedal edema, tenderness
[2017-04-01] MEDS ORDERED: Aminoglycoside Consult 1 EACH MC ONE (12:10)
[2017-04-01 12:44] VITALS: BP 124/78
== END 2017-04-01 12:11 | disposition home or self-care (01) | DRG 190 ==
LOC: ICNU 17:24 → 3NENU 03-30 11:54
PROVIDERS: ADMIT Internal Medicine Pulmonary Disease; ATTEND Internal Medicine

== ENCOUNTER 2018-05-18 07:41 | Inpatient (IN) ==
[2018-05-18] MEDS ORDERED: Ondansetron 4 MG/2 ML VIAL IVP ONE ×2 (07:52→11:31)
[2018-05-18] MEDS ORDERED: *HR* FentaNYL (PF) 100 MCG/2 ML VIAL IVP ONE (07:52)
--- NOTE | 2018-05-18 08:01 | Emergency Department Note ---
Disposition Clinical Impression: Hand edema, Requires supplemental oxygen Community acquired pneumonia Qualifiers: Laterality: left Lung location: lower lobe of lung Qualified Code(s): J18.1 - Lobar pneumonia, unspecified organism Bilateral shoulder pain Qualifiers: Chronicity: acute Qualified Code(s): M25.511 - Pain in right shoulder Disposition: Admitted As Inpatient Condition: Good General Adult HPI - General Chief complaint: ED Shortness of Breath/Dyspnea Stated complaint: edema Time Seen by Provider: 05/18/18 07:47 Source: patient, family Mode of arrival: private vehicle Limitations: no limitations Nursing Notes Reviewed: Yes Vital Signs Reviewed: Yes - History of Present Illness Pt Subjective Complaint: chills, aching all over, hands and feet swollen, short of breath Onset (ago): day(s) (4) Location: upper extremity, lower extremity Radiation: non-radiation Pain Severity: moderate, severe Pain Scale: 8 Quality: aching Consistency: constant Improves with: nothing Worsens with: nothing Associated symptoms: Reports: cough, fever/chills (chills, no thermometer), malaise, shortness of breath, weakness ("all over"). Denies: confusion, chest pain, diaphoresis, headaches, loss of appetite, nausea/vomiting, rash, seizure, syncope Treatments Prior to Arrival: other (tylenol, no relief. Went to [facility] ED last night. PE study negative for PE. ) - Related Data Home Medications Medication Instructions Recorded Confirmed metFORMIN [Glucophage] 500 mg PO DAILY 03/29/17 05/18/18 Acetaminophen [Tylenol] 650 mg PO Q4-6H PRN 03/30/17 05/18/18 Albuterol Sulfate [Ventolin Hfa] 2 puff IH Q4-6H PRN 03/30/17 05/18/18 Budesonide/Formoterol 160/4.5 2 puff IH BIDR 03/30/17 05/18/18 [Symbicort 160/4.5] Guaifenesin [Mucinex] 600 mg PO DAILY PRN 03/30/17 05/18/18 Clopidogrel [Plavix] 75 mg PO DAILY 05/18/18 05/18/18 Furosemide [Lasix] 40 mg PO DAILY 05/18/18 05/18/18 Levothyroxine Sodium [Synthroid] 200 mcg PO DAILY 05/18/18 05/18/18 Levothyroxine [Synthroid] 50 mcg PO 0630 05/18/18 05/18/18 Naproxen [Naprosyn] 500 mg PO BID 05/18/18 05/18/18 Warfarin [Coumadin] 15 mg PO MOWEFR 05/18/18 05/18/18 Warfarin [Coumadin] 17.5 mg PO SUTUTHSA 05/18/18 05/18/18 Allergies Allergy/AdvReac Type Severity Reaction Status Date / Time No Known Allergies Allergy Verified 05/18/18 12:26 All systems ED: reviewed and negative except as stated. Review of Systems: As Per HPI Constitutional: Reports: chills, weakness. Denies: fever, weight change Eyes: Denies: vision change ENT ED: Denies: throat pain, congestion, dysphagia Cardiovascular: Reports: dyspnea on exertion, edema (new onset bilateral hand edema x 4 days). Denies: chest pain, palpitations Respiratory: Reports: as per HPI, cough, dyspnea. Denies: wheezes, hemoptysis, stridor, sputum production Gastrointestinal: Denies: abdominal pain, nausea, vomiting, diarrhea Musculoskeletal: Reports: arthralgia (bilateral shoulder ). Denies: back pain, neck pain, joint swelling Neurological: Reports: weakness (generalized). Denies: headache, numbness, paresthesias, confusion, vertigo Hematological/Lymphatic: Denies: easy bleeding, easy bruising, lymphadenopathy Past Medical History - Past Medical History Attestation: Yes The following information was validated with the patient. Source: patient Medical history: Reports: arthritis, CHF, COPD, diabetes, hypertension, other Surgical history: Reports: other Psychiatric history: Reports: anxiety, depression - Social History Smoking Status: Former smoker Smokeless Tobacco Status: No Alcohol use: Reports: none Drug use: Reports: none Physical Exam - General Limitations: no limitations General appearance: alert, in no apparent distress - Head Head exam: atraumatic, normocephalic, normal inspection - Eye Eye exam: Present: normal appearance, PERRL. Absent: scleral icterus, conjunctival injection, periorbital swelling - ENT ENT exam: mucous membranes dry - Neck Neck exam: Present: normal inspection, full ROM, trachea midline. Absent: meningismus, lymphadenopathy - Chest Chest inspection: Present: normal inspection, symmetric chest wall rise. Absent : tenderness - Respiratory Respiratory exam: Absent: respiratory distress, wheezes, stridor, accessory muscle use, prolonged expiratory phase - Expanded Respiratory Exam Location: rales: Left, Right, Upper, Lower, decreased breath sounds: Left, Right , Lower - Cardiovascular Cardiovascular exam: Present: normal rhythm, tachycardia, normal heart sounds - Abdominal Exam Abdominal exam: Present: soft, Non-Tender - Extremities Exam Extremities exam: Present: normal capillary refill, pedal edema, other ( bilateral hand edema). Absent: tenderness, joint swelling - Back Exam Back exam: Present: normal inspection - Neurological Exam Neurological exam: Present: alert, oriented X3, CN II-XII intact. Absent: normal gait (weak and required assistance to transfer from wheelchair to bed) - Psychiatric Psychiatric exam: Present: normal affect, normal mood - Skin Skin exam: Present: warm, dry, intact, normal color Course Course Narrative: Patient with history of coronary artery disease, COPD and CHF presents from home for evaluation of polyarthralgia bilateral hand edema, chills, malaise, shortness of breath for four days. He states that he has had no recent changes in medications. He has been taking his Lasix. No change in activity. No trauma. He has not experienced hand edema in the past or shoulder pain. He denies chest pain, dizziness, vertigo, syncope. He describes generalized weakness and has had chills. No fever, but states that he does not have a temperature. No nausea, vomiting or diarrhea. No change in urine output. No rash or recent travel. No recent surgeries. 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 He is on Coumadin and is therapeutic. He was seen at [facility] ER last night for same. CTA of the chest was done which showed no pneumothorax, positive infiltrate in the left lower lung which was described as mild. Patient was not started on antibiotics. This morning his pain was worse, so he came here for evaluation. Upon arrival, he is tachypneic, has generalized weakness and requires assistance to transfer from the wheelchair, two steps to the cot. He is currently afebrile, tachycardic in the low 100s with blood pressure in the high 90s to low 100 systolic. He has bilateral rales and is mildly tachypneic. Oxygen saturation is 93% on 2 L nasal cannula. He is able to speak in complete sentences. The shoulder pain is not reproducible with palpation or range of motion. Labs and x-ray have been ordered as well as pain medication. Pain was transiently improved but then returned. EKG is unchanged compared to previous and shows normal sinus rhythm. X-ray shows mild pulmonary vascular congestion and cardiomegaly. It was one view, portable. Labs showed leukopenia , white count of two. Differential shows a bandemia of six. Platelet count is normal. Renal panel, normal troponin, normal. Lactic acid pending. Patient reports a history of pneumonia with sepsis last year which required transfer to [place]. He coded during that visit. He is morbidly obese with several significant comorbidities. He is currently requiring oxygen to maintain saturation above 95%. He has significant peripheral edema despite diuretics. CTA yesterday showed pneumonia. His port score is 83, class II. Hospitalist paged observation. Patient accepted for admission. Case discussed with Dr. lin. He has had face- to-face time with patient and agrees with the assessment. He recommends Rocephin and doxycycline. These have been ordered. Vital Signs Temperature 97.7 F 05/18/18 07:45 Pulse Rate 101 05/18/18 07:45 Respiratory Rate 20 05/18/18 07:45 Blood Pressure 99/66 05/18/18 07:45 O2 Sat by Pulse Oximetry 93 05/18/18 07:45 Temperature 97.9 F 05/18/18 13:27 Pulse Rate 84 05/18/18 13:27 Respiratory Rate 18 05/18/18 13:27 Blood Pressure 111/73 05/18/18 13:27 O2 Sat by Pulse Oximetry 94 05/18/18 13:27 Oxygen Delivery Oxygen Delivery Nasal Cannula Medical Decision Making - Medical Records Medical records reviewed: Yes I reviewed the patient's medical records. - Lab Data Lab results reviewed: Yes I reviewed the patient's lab results. Lab results narrative: Laboratory Last Values WBC 2.2 K/mcL (4.3-11.1) L 05/18/18 08:02 RBC 3.77 M/mcL (4.19-5.50) L 05/18/18 08:02 Hgb 12.5 g/dL (12.9-16.9) L 05/18/18 08:02 Hct 38.5 % (37.5-50.1) 05/18/18 08:02 MCV 102.1 fL (83.0-100.0) H 05/18/18 08:02 MCH 33.2 pg (28.0-33.3) 05/18/18 08:02 MCHC 32.5 g/dL (31.6-35.5) 05/18/18 08:02 RDW 17.7 % (11.5-14.5) H 05/18/18 08:02 Plt Count 191 K/mcL (140-400) 05/18/18 08:02 MPV 11.0 fL (9.4-12.4) 05/18/18 08:02 Seg Neutrophils % 30.0 % 05/18/18 08:02 Band Neutrophils % 6.0 % (0-4) H 05/18/18 08:02 Lymphocytes % 34.0 % 05/18/18 08:02 Monocytes % 24.0 % 05/18/18 08:02 Metamyelocytes % 4.0 % (0) H 05/18/18 08:02 Myelocytes % 2.0 % (0) H 05/18/18 08:02 Neutrophils # 0.8 K/mcL (1.6-8.9) L 05/18/18 08:02 Lymphocytes # 0.8 K/mcL (0.6-4.6) 05/18/18 08:02 Monocytes # 0.5 K/mcL (0.0-1.3) 05/18/18 08:02 Platelet Estimate Normal (Normal) 05/18/18 08:02 PT 29.7 Seconds (9.4-12.1) H 05/18/18 07:52 INR 2.6 05/18/18 07:52 APTT 45.8 Seconds (26.0-36.0) H 05/18/18 07:52 Sodium 135 mEq/L (136-145) L 05/18/18 08:02 Potassium 3.6 mEq/L (3.5-5.1) 05/18/18 08:02 Chloride 103 mEq/L (98-107) 05/18/18 08:02 Carbon Dioxide 24 mEq/L (23-29) 05/18/18 08:02 BUN 17 mg/dL (8-23) 05/18/18 08:02 Creatinine 0.94 mg/dL (0.70-1.30) 05/18/18 08:02 Est GFR ( Amer) > 60 (> 60) 05/18/18 08:02 Est GFR (Non-Af Amer) > 60 (> 60) 05/18/18 08:02 BUN/Creatinine Ratio 18 (6-26) 05/18/18 08:02 Glucose 112 mg/dL (70-105) H 05/18/18 08:02 Calculated Osmolality 282 (280-300) 05/18/18 08:02 Calcium 9.4 mg/dL (8.6-10.3) 05/18/18 08:02 Troponin I < 0.03 ng/mL (< 0.04) 05/18/18 08:02 Result diagrams: 05/18/18 08:02 05/18/18 08:02 Lab Results 05/18/18 05/18/18 05/18/18 Range/Units 07:52 08:02 08:02 WBC 2.2 L (4.3-11.1) K/mcL RBC 3.77 L (4.19-5.50) M/mcL Hgb 12.5 L (12.9-16.9) g/dL Hct 38.5 (37.5-50.1) % MCV 102.1 H (83.0-100.0) fL MCH 33.2 (28.0-33.3) pg MCHC 32.5 (31.6-35.5) g/dL RDW 17.7 H (11.5-14.5) % Plt Count 191 (140-400) K/mcL MPV 11.0 (9.4-12.4) fL Seg Neutrophils % 30.0 % Band Neutrophils % 6.0 H (0-4) % Lymphocytes % 34.0 % Monocytes % 24.0 % Metamyelocytes % 4.0 H (0) % Myelocytes % 2.0 H (0) % Neutrophils # 0.8 L (1.6-8.9) K/mcL Lymphocytes # 0.8 (0.6-4.6) K/mcL Monocytes # 0.5 (0.0-1.3) K/mcL Platelet Estimate Normal (Normal) PT 29.7 H (9.4-12.1) Seconds INR 2.6 APTT 45.8 H (26.0-36.0) Seconds Sodium 135 L (136-145) mEq/L Potassium 3.6 (3.5-5.1) mEq/L Chloride 103 (98-107) mEq/L Carbon Dioxide 24 (23-29) mEq/L BUN 17 (8-23) mg/dL Creatinine 0.94 (0.70-1.30) mg/dL Est GFR ( Amer) > 60 (> 60) Est GFR (Non-Af Amer) > 60 (> 60) BUN/Creatinine Ratio 18 (6-26) Glucose 112 H (70-105) mg/dL Calculated Osmolality 282 (280-300) Lactic Acid (0.5-2.2) mmol/L Calcium 9.4 (8.6-10.3) mg/dL Troponin I < 0.03 (< 0.04) ng/mL 05/18/18 Range/Units 11:57 WBC (4.3-11.1) K/mcL RBC (4.19-5.50) M/mcL Hgb (12.9-16.9) g/dL Hct (37.5-50.1) % MCV (83.0-100.0) fL MCH (28.0-33.3) pg MCHC (31.6-35.5) g/dL RDW (11.5-14.5) % Plt Count (140-400) K/mcL MPV (9.4-12.4) fL Seg Neutrophils % % Band Neutrophils % (0-4) % Lymphocytes % % Monocytes % % Metamyelocytes % (0) % Myelocytes % (0) % Neutrophils # (1.6-8.9) K/mcL Lymphocytes # (0.6-4.6) K/mcL Monocytes # (0.0-1.3) K/mcL Platelet Estimate (Normal) PT (9.4-12.1) Seconds INR APTT (26.0-36.0) Seconds Sodium (136-145) mEq/L Potassium (3.5-5.1) mEq/L Chloride (98-107) mEq/L Carbon Dioxide (23-29) mEq/L BUN (8-23) mg/dL Creatinine (0.70-1.30) mg/dL Est GFR ( Amer) (> 60) Est GFR (Non-Af Amer) (> 60) BUN/Creatinine Ratio (6-26) Glucose (70-105) mg/dL Calculated Osmolality (280-300) Lactic Acid 1.2 (0.5-2.2) mmol/L Calcium (8.6-10.3) mg/dL Troponin I (< 0.04) ng/mL - Radiology Data Radiology results reviewed: Yes I reviewed the patient's radiology results. Chest X-Ray 05/18/18 07:52 IMPRESSION: 1. Cardiomegaly with mild vascular congestion. D/ / Nii Aldridge MD / Nii Aldridge MD Interpreting Provider: Nii Aldridge MD - EKG Data EKG #1 EKG attestation: Yes I reviewed and interpreted this EKG. EKG shows normal: sinus rhythm Rate: normal Rhythm: NSR When compared to previous EKG there are: no significant changes Interpretation: unchanged when compared to prior tracing (date) Attestation Statement - Attestation Attestation: I have personally performed a face to face evaluation on this patient. I have reviewed and agree with the care plan. History and Exam by me shows: obese male in poor general health now with pneumonia and unlikely to do well with outpatient treatment
[2018-05-18 08:24] LABS: Hematocrit 38.5 % (37.5-50.1); Hemoglobin 12.5 g/dL (12.9-16.9); Mean Corpuscular HGB Conc 32.5 g/dL (31.6-35.5); Mean Corpuscular Hemoglobin 33.2 pg (28.0-33.3); Mean Corpuscular Volume 102.1 fL (83.0-100.0); Platelet Count 191 K/mcL (140-400); Red Blood Count 3.77 M/mcL (4.19-5.50); Red Cell Distribution Width 17.7 % (11.5-14.5)
[2018-05-18 08:29] LABS: INR 2.6; Prothrombin Time 29.7 Seconds (9.4-12.1)
[2018-05-18 08:32] LABS: Activated Partial Thrombo Time 45.8 Seconds (26.0-36.0)
[2018-05-18 08:45] LABS: Lymphocytes # 0.8 K/mcL (0.6-4.6); Monocytes # 0.5 K/mcL (0.0-1.3); Neutrophils # 0.8 K/mcL (1.6-8.9)
[2018-05-18 08:46] LABS: Platelet Estimate Normal (Normal)
[2018-05-18 08:47] LABS: BUN/Creatinine Ratio 18 (6-26); Blood Urea Nitrogen 17 mg/dL (8-23); Calcium 9.4 mg/dL (8.6-10.3); Carbon Dioxide 24 mEq/L (23-29); Chloride 103 mEq/L (98-107); Glucose 112 mg/dL (70-105); Osmolality,Calculated 282 (280-300); Potassium 3.6 mEq/L (3.5-5.1); Sodium 135 mEq/L (136-145); eGFR For Non-African Americans > 60 (> 60)
[2018-05-18 08:48] LABS: Troponin I < 0.03 ng/mL (< 0.04)
[2018-05-18] MEDS ORDERED: cefTRIAXone 2,000 MG in 0.9 % Sodium Chloride Mini Bag 100 ML IVPB ONE (11:29)
[2018-05-18] MEDS ORDERED: Doxycycline 100 MG CAPSULE PO ONE (11:29)
[2018-05-18] MEDS ORDERED: OXYCODONE Oral CONC 10 MG/0.5 ML ORAL.SYG SL ONE (11:31)
[2018-05-18] MEDS ORDERED: Naloxone 0.4 MG/ML INJ IVP PRN (11:41)
[2018-05-18] MEDS ORDERED: *HR* Dextrose 50 % in Water (Syg) 50 ML SYRINGE IVP PRN (14:34)
[2018-05-18] MEDS ORDERED: Dextrose Gel 15 GM/37.5 ML TUBE PO PRN ×2 (14:34)
[2018-05-18] MEDS ORDERED: D5% in Water 1,000 ML IVC PRN (14:34)
[2018-05-18] MEDS ORDERED: Furosemide 40 MG/4 ML VIAL IVP ONE (14:38)
[2018-05-18] MEDS ORDERED: Acetaminophen 325 MG TABLET PO PRN (14:39)
[2018-05-18 16:12] LABS: Adenovirus Not Detected (Not Detect); Bordetella Pertussis Not Detected (Not Detect); Coronavirus 229E Not Detected (Not Detect); Coronavirus HKU1 Not Detected (Not Detect); Coronavirus NL63 Not Detected (Not Detect); Coronavirus OC43 Not Detected (Not Detect); Human Metapneumovirus Not Detected (Not Detect); Human Rhinovirus/Enterovirus Not Detected (Not Detect); Influenza A Subtype 2009 H1 Not Detected (Not Detect); Influenza A Untypeable Not Detected (Not Detect); Influenza B Not Detected (Not Detect); Parainfluenza Virus 1 Not Detected (Not Detect); Parainfluenza Virus 2 Not Detected (Not Detect); Parainfluenza Virus 3 Not Detected (Not Detect); Parainfluenza Virus 4 Not Detected (Not Detect); Respiratory Syncytial Virus Not Detected (Not Detect)
[2018-05-18 16:13] LABS: Chlamydophila pneumoniae Not Detected (Not Detect); Mycoplasma pneumoniae Not Detected (Not Detect)
--- NOTE | 2018-05-18 16:27 | Internal Med History&Physical ---
<KarineBo - Last Filed: 05/18/18 17:14> Date of Encounter: 05/18/18 Time of Encounter: 14:00 Internal Medicine - H&P: HPI Chief complaint: SOB/Dyspnea Admitted From: Emergency Dept Plans for Post Hospital Care: Home History of present illness: Mr. Mullen is a 62 year old male w/PMH of arthritis, CHF, COPD, diabetes controlled with oral anti-hyperglycemic medications, and thyroid disease presents from the ED w/CC of SOB/Dyspnea for the past 4 days. Pt. also reports chills, aching all over, edema in bilateral hands and feet, fatigue/weakness. Pt. states this has never happened before. Only alleviating factor: pain medication. Pt. states he went to [facility] last night for same sx and had negative PE study. Also states that CTA of the chest showed infiltrates in the left lower lung described as mild. States pain was worse this a.m. Pt. denies recent sick contacts, nausea, vomiting, changes in vision, headache, unusual bleeding, chest pain, cough, chest congestion, abdominal pain, diarrhea , constipation, dizziness, lightheadedness, numbness, tingling, pre-syncope, or syncope. Past Med Surg Social Fam HX - Past Medical History Source: patient, old records reviewed Medical history: arthritis, CHF, COPD, diabetes, hypertension, other Additional medical history: Type II Diabetes Psychiatric history: anxiety, depression - Past Surgical History Surgical History: other Additional surgical history: Prostate stents - Social History Smoking Status: Current every day smoker Packs per day: 1 PPD Smokeless Tobacco Status: No Alcohol use: none Drug use: none Current living situation: Home Activity Level: Uses cane/walker Recent Out of Country Travel Within the Last 8 Weeks: No Exposure or Possible Exposure to Illness During Travel: No - Family History Mother Adopted: No Race: Family Member Ethnicity: Non- Living Status: Age at : 75 Cause of : DM complications Hx Family Endocrine Disorder: Yes (DM) Hx Family Neuromuscular Disorders: Yes (Parkinsons) Father Adopted: No Race: Family Member Ethnicity: Non- Living Status: Age at : 57 Cause of : PA Hx Family Cardiac Disorders: Yes (PA, CHF, HTN) Brother Race: Family Member Ethnicity: Non- Living Status: Age at : 39 Cause of : PA Hx Family Cardiac Disorders: Yes (heart attack) Sister Race: Family Member Ethnicity: Non- Living Status: Still Living Hx Family Autoimmune Disorders: Yes (Lupus) Internal Medicine - H&P: Meds metFORMIN [Glucophage] 500 mg PO DAILY 03/29/17 [History] Acetaminophen [Tylenol] 650 mg PO Q4-6H PRN 03/30/17 [History] Albuterol Sulfate [Ventolin Hfa] 2 puff IH Q4-6H PRN 03/30/17 [History] Budesonide/Formoterol 160/4.5 [Symbicort 160/4.5] 2 puff IH BIDR 03/30/17 [ History] Guaifenesin [Mucinex] 600 mg PO DAILY PRN 03/30/17 [History] Clopidogrel [Plavix] 75 mg PO DAILY 05/18/18 [History] Furosemide [Lasix] 40 mg PO DAILY 05/18/18 [History] Levothyroxine Sodium [Synthroid] 200 mcg PO DAILY 05/18/18 [History] Levothyroxine [Synthroid] 50 mcg PO 0630 05/18/18 [History] Naproxen [Naprosyn] 500 mg PO BID 05/18/18 [History] Warfarin [Coumadin] 15 mg PO MOWEFR 05/18/18 [History] Warfarin [Coumadin] 17.5 mg PO SUTUTHSA 05/18/18 [History] 3 Allergy/AdvReac Type Severity Reaction Status Date / Time No Known Allergies Allergy Verified 05/18/18 12:26 All Systems PM: A 10-system review of systems was performed and is negative for pertinent findings except as documented above in the HPI. - Constitutional Constitutional: as per HPI, chills, fatigue, fever(s), malaise, weakness, no night sweats - EENT Eyes: no change in vision, no discharge, no pain, no photophobia Ears: no ear discharge, no ear pain, no tinnitus Nose, mouth and throat: no dysphagia, no nasal discharge, no neck pain, no sore throat - Breasts Breasts: as per HPI - Cardiovascular Cardiovascular ROS IM: as per HPI, dyspnea, dyspnea on exertion, edema, orthopnea, no chest pain, no diaphoresis, no lightheadedness, no palpitations, no syncope - Respiratory Respiratory: as per HPI, dyspnea, dyspnea on exertion, wheezing, no cough, no excessive phlegm production - Gastrointestinal Gastrointestinal: no abdominal pain, no diarrhea, no hematemesis, no hematochezia, no melena, no nausea, no vomiting - Genitourinary Genitourinary ROS male: as per HPI - Musculoskeletal Musculoskeletal ROS IM: no numbness, no tingling - Integumentary Integumentary IM: no rash, no unusual bruising - Neurological Neurological ROS: as per HPI, weakness, no confusion, no convulsions, no focal weakness, no numbness, no tingling, no tremor(s) - Psychiatric Psychiatric: as per HPI, anxiety, depression - Endocrine Endocrine IM: as per HPI - Hematologic/Lymphatic Hematologic/Lymphatic: no easy bruising - Allergic/Immunologic Allergic/Immunologic: as per HPI - Constitutional Vitals: Temp Pulse Resp BP Pulse Ox 97.9 F 84 18 111/73 94 05/18/18 13:27 05/18/18 13:27 05/18/18 15:33 05/18/18 13:27 05/18/18 15:33 General appearance: Present: cooperative, mild distress (Edema/SOB), A&O X 3, morbidly obese, pleasant, answers questions appropriately Exam: Pt. examined at bedside and reports SOB and dyspnea. Pt. also reports edema in bilateral UEs and LEs. States he has severe weakness d/t his SOB so I informed pt. that he will be falls/safety precautions and will require assistance when getting out of bed. He expressed understanding. Leukopenic on admission (pt. has hx of chronic leukopenia) so will do work-up for infection process. Currently does not meet sepsis criteria but will be monitored closely. VS on exam: temp 97.7F, HR 80, RR 18, BP 106/63, SpO2 93% on RA. - Head Head exam: Present: atraumatic, normocephalic - Eye Eye exam: Present: PERRL, conjuntiva pink, sclera anicteric Pupils: Present: PERRL - ENT ENT exam: Present: normal exam - Neck Neck exam general surgery: Present: normal inspection, supple, trachea midline. Absent: lymphadenopathy - Respiratory Respiratory exam: Present: CTAB. Absent: accessory muscle use, rales, rhonchi, wheezes - Cardiovascular Cardiovascular exam: Present: RRR, +S1, +S2. Absent: diastolic murmur, gallop, rubs, systolic murmur - GI/Abdominal GI/Abdominal exam: Present: normal bowel sounds, soft, no peritoneal signs. Absent: distended, tenderness - Rectal Rectal exam: Present: deferred - Additional comments: exam deferred. - Extremities Exam Extremities exam: Present: warm, radial pulses palpable and symmetrical. Absent : calf tenderness, cyanotic, pedal edema - Back Exam Back exam: Present: normal inspection - Neurological Exam Neurological exam: Present: alert, CN II-XII intact, oriented X3, no focal deficits. Absent: pronater drift, facial droop, speech deficit - Psychiatric Psychiatric exam: Present: normal affect, normal mood - Skin Skin exam: Present: dry, intact Internal Med - H&P Results - Labs CBC & Chem 7: 05/18/18 08:02 05/18/18 08:02 - EKG Data EKG shows normal: sinus rhythm - EKG Data Prior EKG available for review: yes EKG comments: 05/18/18 16:32 EKG dated 03/29/17 shows sinus rhythm. EKG dated 05/18/18 shows sinus rhythm with normal P axis and V-rate of 50-99, atrial premature complex - Diagnostic Studies Chest x-ray Additional comments: Impressions Chest X-Ray 05/18/18 07:52 IMPRESSION: 1. Cardiomegaly with mild vascular congestion. D/ / Nii Aldridge MD / Nii Aldridge MD Interpreting Provider: Nii Aldridge MD - Assessment and plan (1) Acute exacerbation of CHF (congestive heart failure) Current Visit: Yes Status: Acute Assessment and plan: Acute exacerbation of CHF. Pt. reports edema in bilateral hands and feet, fatigue/weakness worse over the past 4 days. BNP 108 on admission but pts. bilateral UEs and LEs edematous. SOB on exam w/bilateral wheezes. Pt. reports taking 40 mg lasix daily PO. Hold PO lasix and administer 40 mg IVP lasix BID. Monitor I&O and daily weight. Echocardiogram ordered. 1.5L daily fluid restriction. Falls/safety precautions. Up with assist. Continuous cardiac telemetry. Pt. discussed w/Dr. concepcion who agrees w/plan of care. Pt. is high risk for further morbidity and respiratory/cardiac complications d/t current acute exacerbation of CHF, SOB/dyspnea worsening over past 4 days, hx; and risk factors of CHF, COPD, morbid obesity, and HTN. Observation. Qualifiers: Heart failure type: unspecified Qualified Code(s): I50.9 - Heart failure, unspecified (2) Dyspnea Current Visit: Yes Status: Acute Assessment and plan: Acute on chronic dyspnea worsening over past 4 days. Pt. has hx of CHF and COPD. Currently in CHF exacerbation. Continue pts. inhalers and add DuoNebs Q6HR scheduled. Qualifiers: Dyspnea type: shortness of breath Qualified Code(s): R06.02 - Shortness of breath; R06.00 - Dyspnea, unspecified; R06.01 - Orthopnea (3) Leukopenia Current Visit: Yes Status: Acute Assessment and plan: Acute on chronic leukopenia w/WBC of 2.2, up from 1.7 and 1.9 in March. Monitor pt. and f/u labs. Rule out infective process was blood cultures 2, sputum culture, legionella and strep pneumoniae antigens, mycoplasma pneumonia, and respiratory infection panel. Patient received IVPB ceftriaxone and by mouth doxycycline. Will add abx coverage if warranted by culture results. Qualifiers: Leukopenia type: unspecified Qualified Code(s): D72.819 - Decreased white blood cell count, unspecified (4) HTN (hypertension) Current Visit: Yes Status: Chronic Assessment and plan: Hx of chronic HTN. Monitor pt. and VS. IVP Hydralazine 10 mg Q6HR PRN w/ parameters ordered for HTN. Qualifiers: Hypertension type: essential hypertension Qualified Code(s): I10 - Essential (primary) hypertension (5) COPD (chronic obstructive pulmonary disease) Current Visit: Yes Status: Chronic Assessment and plan: Hx of chronic COPD. Stable. Continue pts. inhaler. DuoNebs Q6HR scheduled. Supplemental O2 w/titration and SpO2 monitoring. Qualifiers: COPD type: chronic bronchitis Chronic bronchitis type: simple Qualified Code(s): J41.0 - Simple chronic bronchitis (6) Diabetes Current Visit: Yes Status: Chronic Assessment and plan: Hx of chronic diabetes controlled by oral anti-hyperglycemic medications. Hold PO medications and add low-dose correction sliding scale insulin. BG cehcks ACHS. A1c in a.m. labs. Qualifiers: Diabetes mellitus type: type 2 Diabetes mellitus [facility] insulin use: without terminal supervisor use Diabetes mellitus complication status: without complication Qualified Code(s): E11.9 - Type 2 diabetes mellitus without complications (7) Hypothyroidism Current Visit: Yes Status: Chronic Assessment and plan: Hx of chronic hypothyroidism. TSH and Free T4 in a.m. labs. Continue pts. Synthroid. Qualifiers: Hypothyroidism type: acquired Qualified Code(s): E03.9 - Hypothyroidism, unspecified (8) Morbid obesity Current Visit: Yes Status: Chronic Assessment and plan: Hx of morbid obesity. BMI currently 42.7. (9) DVT prophylaxis Current Visit: Yes Status: Acute Assessment and plan: Continue pts. Coumadin w/Pharmacy dosing for DVT prophylaxis. Monitor pt. for signs of bleeding. (10) Weakness Current Visit: Yes Status: Acute Assessment and plan: Acute weakness, worsening over the past 4 days likely d/t current SOB from CHF exacerbation. Falls/safety precautions and up with assist only. - Time Spent With Patient Total time spent is greater than 50% in coordination of care (as documented) at patient's floor/unit and/or counseling patient: Greater than 35 minutes <Mayela Concepcion - Last Filed: 05/18/18 21:05> Date of Encounter: 05/18/18 Internal Medicine - H&P: HPI History of present illness: Mr. Mullen is a 62 year old male All Systems PM: A 10-system review of systems was performed and is negative for pertinent findings except as documented above in the HPI. - Constitutional Vitals: Temp Pulse Resp BP Pulse Ox 98.1 F 84 18 105/61 90 05/18/18 19:12 05/18/18 19:12 05/18/18 20:17 05/18/18 19:12 05/18/18 20:17 Internal Med - H&P Results - Labs CBC & Chem 7: 05/18/18 08:02 05/18/18 08:02 - Assessment and plan (1) COPD (chronic obstructive pulmonary disease) Current Visit: Yes Status: Chronic Qualifiers: COPD type: chronic bronchitis Chronic bronchitis type: simple Qualified Code(s): J41.0 - Simple chronic bronchitis (2) Dyspnea Current Visit: Yes Status: Acute Qualifiers: Dyspnea type: shortness of breath Qualified Code(s): R06.02 - Shortness of breath; R06.00 - Dyspnea, unspecified; R06.01 - Orthopnea (3) Hypothyroidism Current Visit: Yes Status: Chronic Qualifiers: Hypothyroidism type: acquired Qualified Code(s): E03.9 - Hypothyroidism, unspecified (4) Morbid obesity Current Visit: Yes Status: Chronic (5) Diabetes Current Visit: Yes Status: Chronic Qualifiers: Diabetes mellitus type: type 2 Diabetes mellitus terminal supervisor insulin use: without [facility] use Diabetes mellitus complication status: without complication Qualified Code(s): E11.9 - Type 2 diabetes mellitus without complications (6) Leukopenia Current Visit: Yes Status: Acute Qualifiers: Leukopenia type: unspecified Qualified Code(s): D72.819 - Decreased white blood cell count, unspecified (7) Acute exacerbation of CHF (congestive heart failure) Current Visit: Yes Status: Acute Qualifiers: Heart failure type: unspecified Qualified Code(s): I50.9 - Heart failure, unspecified (8) HTN (hypertension) Current Visit: Yes Status: Chronic Qualifiers: Hypertension type: essential hypertension Qualified Code(s): I10 - Essential (primary) hypertension (9) DVT prophylaxis Current Visit: Yes Status: Acute (10) Weakness Current Visit: Yes Status: Acute - Time Spent With Patient Total time spent is greater than 50% in coordination of care (as documented) at patient's floor/unit and/or counseling patient: - Attending Attestation I examined this patient [id number] and my medical decision-making was reviewed with the Nurse Practitioner. I agree with the documented findings, disposition and treatment plan as described except to the extent set forth below. 62 year old male with history of heart failure presents for dyspnea, hand and feet edema, arthralgias. He was recently seen at [facility] ED yesterday and a CTA of chest was negative for PE. He currently denies chest pain. Today, an EKG shows NSR and unchanged from prior studies. A chest x-ray showed mild vascular congestion. Initial troponin negative. On exam, he has pitting edema of feet and also has trace edema in his abdomen and his hands. He has course rales on lung ascultation. Likely CHF exacerbation. Will continue diuresis with IV Lasix, fluid restriction, monitor I/Os.
[2018-05-18] MEDS ORDERED: Insulin LISPRO 300 UNITS/3 ML VIAL SQ SCH ×2 (16:30→21:00)
[2018-05-18] MEDS: Insulin LISPRO 300 UNITS/3 ML VIAL SQ SCH ×2 (17:09→20:49)
[2018-05-18] MEDS: *HR* HYDROcodone/Acet 5/325 mg TABLET PO PRN (17:13)
[2018-05-18] MEDS ORDERED: Warfarin perPT PO PRN (18:00)
[2018-05-18] MEDS ORDERED: *HR* Warfarin 7.5 MG TABLET PO ONE (18:00)
[2018-05-18] MEDS: Furosemide 40 MG/4 ML VIAL IVP SCH (18:56)
[2018-05-18] MEDS: Budesonide/Formoterol 160/4.5 1 PUFF INH IH SCH (20:17)
[2018-05-18] MEDS ORDERED: traMADol 50 MG TABLET PO ONE (20:20)
[2018-05-18 21:05] LABS: Vitamin B12 423 pg/mL (250-1100)
[2018-05-18 21:06] LABS: Folate > 22.3 ng/mL (3.0-16.0)
[2018-05-18 21:23] LABS: % Iron Saturation 7 % (20-55); Iron 22 mcg/dL (65-175); Lactate Dehydrogenase 322 Units/L (140-271); Transferrin 213 mg/dL (203-362)
[2018-05-18 21:57] LABS: Ferritin 227 ng/mL (20-250)
[2018-05-18] MEDS: Ipratropium/Albuterol Neb 3 ML IH SCH (22:36)
[2018-05-19] MEDS: Ipratropium/Albuterol Neb 3 ML IH SCH ×2 (03:20→10:54)
[2018-05-19 03:40] LABS: Hematocrit 34.8 % (37.5-50.1); Hemoglobin 11.3 g/dL (12.9-16.9); Mean Corpuscular HGB Conc 32.5 g/dL (31.6-35.5); Mean Corpuscular Hemoglobin 33.3 pg (28.0-33.3); Mean Corpuscular Volume 102.7 fL (83.0-100.0); Mean Platelet Volume 10.9 fL (9.4-12.4); Platelet Count 154 K/mcL (140-400); Red Blood Count 3.39 M/mcL (4.19-5.50); Red Cell Distribution Width 17.6 % (11.5-14.5)
[2018-05-19 03:44] LABS: INR 3.1; Prothrombin Time 34.6 Seconds (9.4-12.1)
[2018-05-19 04:02] LABS: BUN/Creatinine Ratio 24 (6-26); Blood Urea Nitrogen 18 mg/dL (8-23); Calcium 8.6 mg/dL (8.6-10.3); Carbon Dioxide 26 mEq/L (23-29); Chloride 103 mEq/L (98-107); Chol/HDL Ratio 7.1 (0-4.9); Cholesterol 106 mg/dL (< 200); Glucose 102 mg/dL (70-105); HDL Cholesterol 15 mg/dL (40-59); LDL Cholesterol,Calculated 55 mg/dL (0-99); Magnesium 1.8 mg/dL (1.6-2.6); Osmolality,Calculated 286 (280-300); Potassium 3.7 mEq/L (3.5-5.1); Sodium 137 mEq/L (136-145); Triglycerides 179 mg/dL (< 150); eGFR For Non-African Americans > 60 (> 60)
[2018-05-19 04:04] LABS: Basophils # 0.1 K/mcL (0.0-0.2); Lymphocytes # 1.6 K/mcL (0.6-4.6); Monocytes # 0.3 K/mcL (0.0-1.3); Neutrophils # 0.5 K/mcL (1.6-8.9); Platelet Estimate Normal (Normal)
[2018-05-19 04:13] LABS: Thyroid Stimulating Hormone 2.296 mcIU/mL (0.340-5.600)
[2018-05-19] MEDS: Insulin LISPRO 300 UNITS/3 ML VIAL SQ SCH ×4 (07:55→20:41)
[2018-05-19] MEDS: Furosemide 40 MG/4 ML VIAL IVP SCH ×2 (08:01→16:51)
--- NOTE | 2018-05-19 08:32 | Internal Med Progress Note ---
Hospitalist Progress Note - Encounter Date of Encounter: 05/19/18 Time of Encounter: 11:00 - Subjective Interval History: Patient with swelling in bilateral hands and pedal edema in addition to joint pain in ankles and shoulders Patient does not appear to be short of breath on exam and only complains of pain in hands due to swelling and also in joints - Exam Vitals: Temp Pulse Resp BP Pulse Ox 98.0 F 92 15 108/73 90 05/19/18 07:48 05/19/18 07:48 05/19/18 07:48 05/19/18 07:48 05/19/18 07:48 Exam: Gen.: Nonacute distress, alert and oriented 3 ENT: Mucosal membranes moist Respiratory: Lungs are clear to auscultation bilaterally without any wheezing rhonchi or rales Cardiovascular: Normal S1 and S2 regular rate rhythm no murmurs rubs or gallops Abdomen: Soft, nontender and nondistended with positive bowel sounds Extremities: Bilateral hand edema and pedal edema Skin: Normal color - Assessment and Plan (1) Polyarthralgia Current Visit: Yes Status: Acute Assessment and Plan: Patient with complaints of ankle and shoulder pain in addition to bilateral swelling in hands Hematology oncology consulted and suspects patient has polyarthralgia and workup currently in progress. Recommendations to start patient on prednisone Appreciate any further recommendations. (2) Leukopenia Current Visit: Yes Status: Acute Assessment and Plan: Hematology oncology following with recommendations for bone biopsy on 05/21/18 (3) COPD (chronic obstructive pulmonary disease) Current Visit: Yes Status: Chronic Assessment and Plan: Stable; continue scheduled DuoNeb's (4) Hypothyroidism Current Visit: Yes Status: Chronic Assessment and Plan: TSH within normal limits; continue home dose of Synthroid (5) Diabetes Current Visit: Yes Status: Chronic Assessment and Plan: Holding PO medications; coverage with low-dose correction sliding scale insulin. (6) Morbid obesity Current Visit: Yes Status: Chronic Assessment and Plan: BMI currently 42.7. (7) DVT prophylaxis Current Visit: Yes Status: Acute Assessment and Plan: Coumadin being held secondary to bone biopsy procedure scheduled on 05/21/18 - Time Spent with Patient Total time spent is greater than 50% in coordination of care (as documented) at patient's floor/unit and/or counseling patient: Internal Medicine: Result - Labs CBC & Chem 7: 05/19/18 03:15 05/19/18 03:15 Labs: Short CBC 05/19/18 Range/Units 03:15 WBC 2.6 L (4.3-11.1) K/mcL Hgb 11.3 L (12.9-16.9) g/dL Hct 34.8 L (37.5-50.1) % Plt Count 154 (140-400) K/mcL Neutrophils # 0.5 L (1.6-8.9) K/mcL BMP 05/19/18 03:15 Sodium 137 Potassium 3.7 Chloride 103 Carbon Dioxide 26 BUN 18 Creatinine 0.76 Glucose 102 Calcium 8.6 - ABG Interpretation ABG results: PT/INR, D-dimer PT 34.6 Seconds (9.4-12.1) H 05/19/18 03:15 Consult Discharge Plan - Plan Referrals: Naseem Jang, [employer]CTOR [Primary Care Provider] - (2) Leukopenia Qualifiers: Leukopenia type: neutropenia (3) COPD (chronic obstructive pulmonary disease) Qualifiers: COPD type: chronic bronchitis Chronic bronchitis type: simple Qualified Code (s): J41.0 - Simple chronic bronchitis (4) Hypothyroidism Qualifiers: Hypothyroidism type: acquired Qualified Code(s): E03.9 - Hypothyroidism, unspecified (5) Diabetes Qualifiers: Diabetes mellitus type: type 2 Diabetes mellitus [facility] insulin use: without watermelon harvesting supervisor use Diabetes mellitus complication status: without complication Qualified Code(s): E11.9 - Type 2 diabetes mellitus without complications
--- NOTE | 2018-05-19 09:12 | Oncology Inp Consult Note ---
Date of Encounter: 05/19/18 Time of Encounter: 09:48 Assessment and Plan (1) Pulmonary embolism on long-term anticoagulation therapy Status: Acute Assessment and plan: He has history of DVT and pulmonary embolism. He is on Coumadin. INR is indicative of therapeutic effect. I recommend hospitals confirm this history. Hold Coumadin for now as we will be performing bone marrow biopsy on Sunday or Sunday. (2) Polyarthralgia Status: Acute Assessment and plan: Patient does not have evidence of congestive heart failure. His echocardiogram is normal. Instead, I think he has polyarthralgia. In January was previous he sent. I will check rheumatoid factor. I have also sent for sedimentation rate and CRP. Blood cultures have been assessed given his poor dentition and recent dental infection. He is on broad spectrum antibiotics. I have empirically started prednisone 60 mg daily to help with his pain as this is quite debilitating. Given his cytopenias, this may be an MDS-related polyarthralgia. Certainly multiple other considerations exist. Pending above evaluation, rheumatology evaluation may be helpful. (3) Leukopenia Status: Acute Assessment and plan: He has had fluctuating cytopenias among all 3 lines in the past. Most recently , he has developed worsening leukopenia with neutropenia. In addition, he has developed a red cell macrocytosis. This is concerning for an underlying MDS. Other considerations include leukemia, myelofibrosis, LGL leukemia, hairy cell leukemia among other non-hematologic causes. I have assessed for nutritional deficiencies and B12 and folic acid which returned normal. Thyroid studies are normal as well. LDH is slightly elevated. Copper level has been sent as copper deficiency can mimic MDS. I have sent evalaution for paraproteinemia although this is unlikely. He does agree to proceed with bone marrow aspirate and biopsy. We will plan for this on Sunday. Please hold Coumadin preparation for his bone marrow aspirate and biopsy. Qualifiers: Leukopenia type: neutropenia Qualified Code(s): D70.9 - Neutropenia, unspecified - Data of Consult Patient: new to practice Requesting Physician: Mann Zamudio Primary Care Provider: Naseem Jang CNP - Consult Narrative Reason for consult: Leukopenia History of present illness: Mr. Mullen is a 62 year old male with a history of staphylococcal pneumonia approximately one year ago as well as DVT/PE on chronic anticoagulation who presents with a four-day history of polyarticular arthralgias involving the hands and feet. He states that the joint started her 4 days ago and has been associated with swelling of the hands. He cannot grab onto things or push himself up from a seated/lying position secondary to discomfort. His feet are also impacted but not to the same degree. He denies any significant pain about his shoulders outside chronic arthritis. The same can be said for his hips and knees. No skin rash although clinically he has livedo. As his pain worsened, he presented to emergency for further evaluation. We are counseled regarding intermittent leukopenia. At time of presentation, his white blood count is 2.2 with an ANC of 800. Hemoglobin 12.5. Platelet count was 191,000. Review the medical record reveals waxing and waning blood counts dating back to 2015. His white blood cell counts range between 2.2 and 6.5. Hemoglobin has ranged between 10.0 and 12.7. Platelet count is ranging between 97 and 321, 000. Of note, his red cell indices show increasing macrocytosis. He denies any alcohol use to speak of. No other drug use. No fever, rigors, unexplained weight loss or early satiety. He currently is being treated for gingival disease secondary to very poor dentition. Regarding his DVT/PE. He states he was hospitalized here for this. I reviewed the medical record. He has had [address] angiograms over the past 2 years. He does be showed pulmonary emboli. There is no venous duplex Doppler. He states he is on Coumadin 17.5/15 mg. I do not note any history in the hospitalist note regarding this. He is not on warfarin currently but INR is 3.1 consistent with warfarin use. He was likely hospitalized elsewhere for his thrombosis. Past Med Surg Social Fam HX - Past Medical History Medical history: arthritis, CHF, COPD, DVT, diabetes, hypertension, other Additional medical history: Type II Diabetes Psychiatric history: anxiety, depression - Past Surgical History Surgical History: other Additional surgical history: Prostate stents - Social History Smoking Status: Current every day smoker Packs per day: 1 PPD Smokeless Tobacco Status: No Alcohol use: none Drug use: none - Family History Mother Adopted: No Race: Family Member Ethnicity: Non- Living Status: Age at : 75 Cause of : DM complications Hx Family Endocrine Disorder: Yes (DM) Hx Family Neuromuscular Disorders: Yes (Parkinsons) Sister Race: Family Member Ethnicity: Non- Living Status: Still Living Hx Family Autoimmune Disorders: Yes (Lupus) Father Adopted: No Race: Family Member Ethnicity: Non- Living Status: Age at : 57 Cause of : [place] Hx Family Cardiac Disorders: Yes ([place], CHF, HTN) Brother Race: Family Member Ethnicity: Non- Living Status: Age at : 39 Cause of : [place] Hx Family Cardiac Disorders: Yes (heart attack) Medications and Allergies metFORMIN [Glucophage] 500 mg PO DAILY 03/29/17 [History] Acetaminophen [Tylenol] 650 mg PO Q4-6H PRN 03/30/17 [History] Albuterol Sulfate [Ventolin Hfa] 2 puff IH Q4-6H PRN 03/30/17 [History] Budesonide/Formoterol 160/4.5 [Symbicort 160/4.5] 2 puff IH BIDR 03/30/17 [ History] Guaifenesin [Mucinex] 600 mg PO DAILY PRN 03/30/17 [History] Clopidogrel [Plavix] 75 mg PO DAILY 05/18/18 [History] Furosemide [Lasix] 40 mg PO DAILY 05/18/18 [History] Levothyroxine Sodium [Synthroid] 200 mcg PO DAILY 05/18/18 [History] Levothyroxine [Synthroid] 50 mcg PO 0630 05/18/18 [History] Naproxen [Naprosyn] 500 mg PO BID 05/18/18 [History] Warfarin [Coumadin] 15 mg PO MOWEFR 05/18/18 [History] Warfarin [Coumadin] 17.5 mg PO SUTUTHSA 05/18/18 [History] 3 Allergy/AdvReac Type Severity Reaction Status Date / Time No Known Allergies Allergy Verified 05/18/18 12:26 All systems: reviewed and no additional remarkable complaints except as stated Constitutional: Present: fatigue Eyes: Present: as per HPI Ears: Present: as per HPI, decreased hearing Nose, mouth and throat: Present: dental pain Cardiovascular: Present: as per HPI Respiratory: Present: dyspnea on exertion Gastrointestinal: Present: constipation Genitourinary: as per HPI Musculoskeletal: Present: arthralgias, joint swelling Integumentary: Present: as per HPI Oncology - Exam - Constitutional Vitals: Temp Pulse Resp BP Pulse Ox 98.0 F 92 15 108/73 90 05/19/18 07:48 05/19/18 07:48 05/19/18 07:48 05/19/18 07:48 05/19/18 07:48 General appearance: cooperative, no acute distress, obese - Head Head exam: Present: atraumatic, normal inspection, normocephalic - Eye Eye exam: Present: normal appearance, conjuntiva pink, sclera anicteric - ENT ENT exam: Present: mucous membranes moist, normal oropharynx - Expanded ENT Exam Teeth exam: Present: dental caries - Neck Neck exam: Present: full ROM, normal inspection - Respiratory Respiratory exam: Present: CTAB - Cardiovascular Cardiovascular exam: Present: RRR - GI/Abdominal GI/Abdominal exam: Present: normal bowel sounds, soft - Extremities Exam Extremities exam: Present: joint swelling, pedal edema - Back Exam Back exam: Present: normal inspection - Neurological Exam Neurological exam: Present: alert, CN II-XII intact, oriented X3, no focal deficits - Skin Skin exam: Present: mottled Oncology - Results Labs: 3 05/19/18 05/19/18 05/19/18 03:15 03:15 03:15 WBC 2.6 L RBC 3.39 L Hgb 11.3 L Hct 34.8 L MCV 102.7 H MCH 33.3 MCHC 32.5 RDW 17.6 H Plt Count 154 MPV 10.9 Seg Neutrophils % 14.0 Band Neutrophils % 4.0 Lymphocytes % 60.0 Monocytes % 10.0 Basophils % 2.0 Metamyelocytes % 4.0 H Myelocytes % 6.0 H Neutrophils # 0.5 L Lymphocytes # 1.6 Monocytes # 0.3 Basophils # 0.1 Platelet Estimate Normal Smear Path Review PT 34.6 H INR 3.1 Sodium 137 Potassium 3.7 Chloride 103 Carbon Dioxide 26 BUN 18 Creatinine 0.76 Est GFR ( Amer) > 60 Est GFR (Non-Af Amer) > 60 BUN/Creatinine Ratio 24 Glucose 102 Calculated Osmolality 286 Calcium 8.6 Magnesium 1.8 Iron % Saturation Transferrin Ferritin Lactate Dehydrogenase B-Natriuretic Peptide Triglycerides 179 H Cholesterol 106 LDL Cholesterol, Calc 55 VLDL Cholesterol, Calc 36 H HDL Cholesterol 15 L Cholesterol/HDL Ratio 7.1 H Vitamin B12 Folate TSH 2.296 Free T4 1.23 Chlamy pneumoniae PCR Adenovirus (PCR) B. pertussis DNA (PCR) B.parapertussis DNA PCR Coronavirus OC43 (PCR) Coronavirus HKU1 (PCR) Coronavirus 229E (PCR) Coronavirus NL63 (PCR) Human Metapneumovir PCR Influenza A (H1) PCR Influ A (H1N1/09) PCR Influenza A (H3) PCR Influenza A Untype (PCR) Influenza Type B (PCR) M.pneumoniae DNA (PCR) Parainfluenza 1 (PCR) Parainfluenza 2 (PCR) Parainfluenza 3 (PCR) Parainfluenza 4 (PCR) RSV (PCR) Entero/Rhino (PCR) 3 05/18/18 05/18/18 05/18/18 19:55 19:55 19:55 WBC RBC Hgb Hct MCV MCH MCHC RDW Plt Count MPV Seg Neutrophils % Band Neutrophils % Lymphocytes % Monocytes % Basophils % Metamyelocytes % Myelocytes % Neutrophils # Lymphocytes # Monocytes # Basophils # Platelet Estimate Smear Path Review See Below PT INR Sodium Potassium Chloride Carbon Dioxide BUN Creatinine Est GFR ( Amer) Est GFR (Non-Af Amer) BUN/Creatinine Ratio Glucose Calculated Osmolality Calcium Magnesium Iron 22 L % Saturation 7 L Transferrin 213 Ferritin 227 Lactate Dehydrogenase 322 H B-Natriuretic Peptide Triglycerides Cholesterol LDL Cholesterol, Calc VLDL Cholesterol, Calc HDL Cholesterol Cholesterol/HDL Ratio Vitamin B12 423 Folate > 22.3 H TSH Free T4 Chlamy pneumoniae PCR Adenovirus (PCR) B. pertussis DNA (PCR) B.parapertussis DNA PCR Coronavirus OC43 (PCR) Coronavirus HKU1 (PCR) Coronavirus 229E (PCR) Coronavirus NL63 (PCR) Human Metapneumovir PCR Influenza A (H1) PCR Influ A (H1N1/09) PCR Influenza A (H3) PCR Influenza A Untype (PCR) Influenza Type B (PCR) M.pneumoniae DNA (PCR) Parainfluenza 1 (PCR) Parainfluenza 2 (PCR) Parainfluenza 3 (PCR) Parainfluenza 4 (PCR) RSV (PCR) Entero/Rhino (PCR) 3 05/18/18 05/18/18 14:52 14:15 WBC RBC Hgb Hct MCV MCH MCHC RDW Plt Count MPV Seg Neutrophils % Band Neutrophils % Lymphocytes % Monocytes % Basophils % Metamyelocytes % Myelocytes % Neutrophils # Lymphocytes # Monocytes # Basophils # Platelet Estimate Smear Path Review PT INR Sodium Potassium Chloride Carbon Dioxide BUN Creatinine Est GFR ( Amer) Est GFR (Non-Af Amer) BUN/Creatinine Ratio Glucose Calculated Osmolality Calcium Magnesium Iron % Saturation Transferrin Ferritin Lactate Dehydrogenase B-Natriuretic Peptide 108 H Triglycerides Cholesterol LDL Cholesterol, Calc VLDL Cholesterol, Calc HDL Cholesterol Cholesterol/HDL Ratio Vitamin B12 Folate TSH Free T4 Chlamy pneumoniae PCR Not Detected Adenovirus (PCR) Not Detected B. pertussis DNA (PCR) Not Detected B.parapertussis DNA PCR Not Detected Coronavirus OC43 (PCR) Not Detected Coronavirus HKU1 (PCR) Not Detected Coronavirus 229E (PCR) Not Detected Coronavirus NL63 (PCR) Not Detected Human Metapneumovir PCR Not Detected Influenza A (H1) PCR Not Detected Influ A (H1N1/09) PCR Not Detected Influenza A (H3) PCR Not Detected Influenza A Untype (PCR) Not Detected Influenza Type B (PCR) Not Detected M.pneumoniae DNA (PCR) Not Detected Parainfluenza 1 (PCR) Not Detected Parainfluenza 2 (PCR) Not Detected Parainfluenza 3 (PCR) Not Detected Parainfluenza 4 (PCR) Not Detected RSV (PCR) Not Detected Entero/Rhino (PCR) Not Detected CT OF THE ABDOMEN AND PELVIS WITHOUT CONTRAST 11/29/2016 3:11 am FINDINGS: System: The kidneys are normal in size. No nephrolithiasis or obstructive uropathy. The ureters taper normally. No bladder mucosal abnormalities. There is increased density of fluid in the dependent portion of the bladder which likely represents underlying hemorrhage. No visualized mass. Lower Chest: The lung bases are clear. The base of the heart is normal. Organs: Cholelithiasis without inflammation or biliary ductal dilatation. The liver, pancreas and spleen are normal. The adrenal glands are normal. GI/Bowel: The stomach, duodenum and small bowel are normal. A normal appendix is visualized. The colon is normal. Pelvis: The prostate is not enlarged. Peritoneum/Retroperitoneum: The aorta tapers normally. No lymph node enlargement. Bones/Soft Tissues: Degenerative changes in the lumbar spine. CT/CT abd pelvis wo no iv no oral IMPRESSION: 1. No nephrolithiasis or obstructive uropathy. 2. Increased density of fluid in the lumen of the bladder likely corresponds to hemorrhage given the provided history of hematuria. No mucosal abnormality or intraluminal mass detected. Urology follow-up recommended. Consult Discharge Plan - Plan Referrals: Naseem Jang CNP [Primary Care Provider] - Inpatient Charges Provider: Dr. Liz Garcia Consult Charges: [id number]
[2018-05-19] MEDS: Budesonide/Formoterol 160/4.5 1 PUFF INH IH SCH ×2 (10:53→21:22)
[2018-05-19] MEDS: predniSONE 20 MG TABLET PO SCH (11:23)
[2018-05-19 12:00] LABS: Estimated Average Glucose 120 mg/dl; Hemoglobin A1C 5.8 %
[2018-05-19] MEDS: *HR* HYDROcodone/Acet 5/325 mg TABLET PO PRN (14:36)
[2018-05-20] MEDS: *HR* HYDROcodone/Acet 5/325 mg TABLET PO PRN ×2 (04:33→17:14)
[2018-05-20 05:50] LABS: Hematocrit 33.1 % (37.5-50.1); Hemoglobin 10.5 g/dL (12.9-16.9); Mean Corpuscular HGB Conc 31.7 g/dL (31.6-35.5); Mean Corpuscular Hemoglobin 32.1 pg (28.0-33.3); Mean Corpuscular Volume 101.2 fL (83.0-100.0); Mean Platelet Volume 11.1 fL (9.4-12.4); Platelet Count 163 K/mcL (140-400); Red Blood Count 3.27 M/mcL (4.19-5.50); Red Cell Distribution Width 17.3 % (11.5-14.5)
[2018-05-20 05:54] LABS: Prothrombin Time 34.4 Seconds (9.4-12.1)
[2018-05-20 06:51] LABS: Lymphocytes # 2.5 K/mcL (0.6-4.6); Monocytes # 0.6 K/mcL (0.0-1.3); Neutrophils # 1.2 K/mcL (1.6-8.9)
[2018-05-20 06:52] LABS: Platelet Estimate Normal (Normal)
[2018-05-20] MEDS: Insulin LISPRO 300 UNITS/3 ML VIAL SQ SCH ×4 (08:11→21:55)
[2018-05-20] MEDS: predniSONE 20 MG TABLET PO SCH (08:12)
[2018-05-20] MEDS: Furosemide 40 MG/4 ML VIAL IVP SCH ×2 (08:12→17:09)
--- NOTE | 2018-05-20 10:09 | Internal Med Progress Note ---
Hospitalist Progress Note - Encounter Date of Encounter: 05/20/18 Time of Encounter: 11:00 - Subjective Interval History: Patient presented with swelling in bilateral hands and pedal edema in addition to joint pain in ankles and shoulders Patient determined to have polyarthralgias in addition to leukocytopenia and hematology oncology and sulfa with recommendations to continue steroids in addition to bone marrow biopsy scheduled for 05/21/18. - Exam Vitals: Temp Pulse Resp BP Pulse Ox 97.8 F 61 17 144/79 92 05/20/18 06:48 05/20/18 06:48 05/20/18 06:48 05/20/18 06:48 05/20/18 06:48 Exam: Gen.: Nonacute distress, alert and oriented 3 ENT: Mucosal membranes moist Respiratory: Lungs are clear to auscultation bilaterally without any wheezing rhonchi or rales Cardiovascular: Normal S1 and S2 regular rate rhythm no murmurs rubs or gallops Abdomen: Soft, nontender and nondistended with positive bowel sounds Extremities: Patient with decreased bilateral hand edema and pedal edema Skin: Normal color - Assessment and Plan (1) Polyarthralgia Current Visit: Yes Status: Acute Assessment and Plan: Patient with complaints of ankle and shoulder pain but now with some improvement and bilateral swelling in hands Hematology oncology consulted and suspects patient has polyarthralgia and workup currently in progress. Continue prednisone per rheumatology recommendations. (2) Leukopenia Current Visit: Yes Status: Acute Assessment and Plan: Hematology oncology following with recommendations for bone biopsy on 05/21/18 (3) COPD (chronic obstructive pulmonary disease) Current Visit: Yes Status: Chronic Assessment and Plan: Stable; continue scheduled DuoNeb's (4) Hypothyroidism Current Visit: Yes Status: Chronic Assessment and Plan: TSH within normal limits; continue home dose of Synthroid (5) Diabetes Current Visit: Yes Status: Chronic Assessment and Plan: Holding PO medications; coverage with low-dose correction sliding scale insulin. (6) Morbid obesity Current Visit: Yes Status: Chronic Assessment and Plan: BMI currently 42.7. (7) DVT prophylaxis Current Visit: Yes Status: Acute Assessment and Plan: Coumadin being held secondary to bone biopsy procedure scheduled on 05/21/18 - Time Spent with Patient Total time spent is greater than 50% in coordination of care (as documented) at patient's floor/unit and/or counseling patient: Internal Medicine: Result - Labs CBC & Chem 7: 05/20/18 04:25 05/19/18 03:15 Labs: Short CBC 05/20/18 Range/Units 04:25 WBC 4.3 D (4.3-11.1) K/mcL Hgb 10.5 L (12.9-16.9) g/dL Hct 33.1 L (37.5-50.1) % Plt Count 163 (140-400) K/mcL Neutrophils # 1.2 L (1.6-8.9) K/mcL - ABG Interpretation ABG results: PT/INR, D-dimer PT 34.4 Seconds (9.4-12.1) H 05/20/18 04:25 - Impressions Impressions Echocardiogram 05/19/18 08:00 Impressions: Technically sub-optimal due to body habitus. LVEF 55%. Normal LV wall thickness and function. Mildly dilated left ventricle. Mild left ventricular diastolic dysfunction. Mildly dilated right ventricle with normal function. No evidence of pulmonary hypertension identified. RVSP not well obtained and could be underestimated. No significant valvular dysfunction. Left Ventricular Wall Motion: Rest Echo Findings All wall segments showed normal motion. Findings: Study Quality * Technically sub-optimal due to body habitus. ECG Findings * Normal sinus rhythm. Left Ventricle * LVEF 55%. * Normal LV wall thickness and function. * Mildly dilated left ventricle. * Mild left ventricular diastolic dysfunction. Right Ventricle * Mildly dilated right ventricle with normal function. Left Atrium * Severely dilated left atrium. Right Atrium * Severely dilated right atrium. Aortic Valve * Trileaflet aortic valve with normal function. * No aortic stenosis. * No aortic regurgitation. Mitral Valve * Normal mitral valve structure and function. * No mitral regurgitation. * No mitral stenosis. Tricuspid Valve * Normal tricuspid valve structure and function. * Trace tricuspid regurgitation. * No evidence of pulmonary hypertension identifed. RVSP not well obtained and could be underestimated. Pulmonic Valve * Normal pulmonic valve structure and function. * Trace pulmonic regurgitation. Aorta * Normally sized aortic root. Pericardium * The pericardium appears normal. IVC * Normal IVC dimensions and inspiratory collapse. Pulmonary Artery * Normal visualized portions of the main pulmonary artery. Consult Discharge Plan - Plan Referrals: Naseem Jang, FLOAT OPERATOR [Primary Care Provider] - (2) Leukopenia Qualifiers: Leukopenia type: neutropenia (3) COPD (chronic obstructive pulmonary disease) Qualifiers: COPD type: chronic bronchitis Chronic bronchitis type: simple Qualified Code (s): J41.0 - Simple chronic bronchitis (4) Hypothyroidism Qualifiers: Hypothyroidism type: acquired Qualified Code(s): E03.9 - Hypothyroidism, unspecified (5) Diabetes Qualifiers: Diabetes mellitus type: type 2 Diabetes mellitus intermediate insulin use: without terminal worker use Diabetes mellitus complication status: without complication Qualified Code(s): E11.9 - Type 2 diabetes mellitus without complications
[2018-05-20] MEDS: Budesonide/Formoterol 160/4.5 1 PUFF INH IH SCH ×2 (11:15→22:16)
[2018-05-20 17:02] LABS: HIV-1 Ab Supplemental NEGATIVE (Negative); HIV-2 Ab Supplemental NEGATIVE (Negative)
[2018-05-21 04:54] LABS: Basophils # 0.1 K/mcL (0.0-0.2); Basophils % 0.9 %; Eosinophils % 0.2 %; Hematocrit 33.9 % (37.5-50.1); Hemoglobin 10.7 g/dL (12.9-16.9); Immature Granulocytes % 12.2 % (0-4); Lymphocytes # 1.3 K/mcL (0.6-4.6); Lymphocytes % 23.9 %; Mean Corpuscular HGB Conc 31.6 g/dL (31.6-35.5); Mean Corpuscular Volume 101.5 fL (83.0-100.0); Mean Platelet Volume 10.5 fL (9.4-12.4); Monocytes # 1.9 K/mcL (0.0-1.3); Monocytes % 35.2 %; Neutrophils # 1.5 K/mcL (1.6-8.9); Platelet Count 183 K/mcL (140-400); Red Blood Count 3.34 M/mcL (4.19-5.50); Red Cell Distribution Width 17.3 % (11.5-14.5); Segmented Neutrophils % 27.6 %
[2018-05-21 04:59] LABS: INR 2.3; Prothrombin Time 26.3 Seconds (9.4-12.1)
[2018-05-21 05:14] LABS: Platelet Estimate Normal (Normal)
[2018-05-21 08:11] LABS: Kappa Qnt Free Light Chains 3.02 mg/dL (0.33-1.94); Lambda Qnt Free Light Chains 3.58 mg/dL (0.57-2.63)
[2018-05-21] MEDS: Insulin LISPRO 300 UNITS/3 ML VIAL SQ SCH ×4 (09:39→21:21)
[2018-05-21] MEDS: predniSONE 20 MG TABLET PO SCH (09:40)
[2018-05-21] MEDS: Furosemide 40 MG/4 ML VIAL IVP SCH (09:53)
[2018-05-21] MEDS: Budesonide/Formoterol 160/4.5 1 PUFF INH IH SCH ×2 (10:38→21:38)
--- NOTE | 2018-05-21 11:33 | Internal Med Progress Note ---
Hospitalist Progress Note - Encounter Date of Encounter: 05/21/18 Time of Encounter: 08:00 - Subjective Interval History: patient was seen at bedside has no complaints, not too pleased with being NPO for procedure. we discussed the risks associated with oral diet pre procedure and he understands he also inquires about his INR level and the plan for procedure as it is elevated - plan and solutions to the problem were discussed with patient and he understood he denies N/V/D, chest pain, SOB, palpitations no over night events, was tolerating PO diet prior to NPO order - Exam Vitals: Temp Pulse Resp BP Pulse Ox 97.5 F L 66 16 126/81 93 05/21/18 11:13 05/21/18 11:13 05/21/18 11:13 05/21/18 11:13 05/21/18 11:13 Exam: General: Patient is alert, oriented, no acute distress, morbidly obese Head: atraumatic, normocephalic, Eye: normal appearance, PERRL, no scleral icterus, no conjunctival injection ENT: mucous membranes moist, normal external ear exam Neck: normal inspection, trachea midline, full ROM, no carotid bruits Chest: normal inspection, symmetric chest rise Respiratory: Good respiratory effort. Bilateral breath sounds are clear without wheezing, crackles, or rhonchi. Cardiovascular: Regular rate and rhythm. s1 and s2 No clicks, rubs, gallops, or murmors. Abdomen: Bowel sounds present normoactive x-4 quadrants. Abdomen is soft, nondistended. no Epigastric tenderness. No guarding or rebound. No organomegaly noted, obese musculoskeletal: Spontaneously moving all extremities. +1 edema, of the hands and LE no calf tenderness Skin: warm, dry, intact. Neuro: Alert and oriented x4. Sensation light touch intact. Cranial nerves 2- 12 is intact. Not aphasic, gait is steady, rapid hand movements intact, finger- to-nose intact, Psych: Patient's affect is normal - Assessment and Plan (1) Polyarthralgia Current Visit: Yes Status: Acute Assessment and Plan: ESR 90 CRP 75 LDH 322 heme/onc on board will follow recs on prednisone as per Heme/onc for BM biopsy today received 2 FFP to reverse INR prior to BM biopsy Bcx sent on 05/18- negative prelim (2) Leukopenia Current Visit: Yes Status: Acute Assessment and Plan: leukopenia resolved WBC count 05/21/18- 5.5 Hematology oncology following with recommendations for bone biopsy on 05/21/18 (3) Macrocytic anemia Current Visit: Yes Status: Acute Assessment and Plan: ? MDS, ?copper deficiency hematology on board folic acid and B12 WNL h/H stable continue to monitor H/H (4) COPD (chronic obstructive pulmonary disease) Current Visit: Yes Status: Chronic Assessment and Plan: Stable continue scheduled DuoNeb's (5) (HFpEF) heart failure with preserved ejection fraction Current Visit: Yes Status: Acute Assessment and Plan: continue fluid restrictions to <1.5 L continue home dose plavix lasix 40 mg Po Qday will start him on low dose BB TTE Impressions: Technically sub-optimal due to body habitus. LVEF 55%. Normal LV wall thickness and function. Mildly dilated left ventricle. Mild left ventricular diastolic dysfunction. Mildly dilated right ventricle with normal function. No evidence of pulmonary hypertension identified. RVSP not well obtained and could be underestimated. No significant valvular dysfunction. (6) Hypothyroidism Current Visit: Yes Status: Chronic Assessment and Plan: TSH within normal limits continue home dose of Synthroid (7) Morbid obesity Current Visit: Yes Status: Chronic Assessment and Plan: BMI currently 42.7. nutrition consult (8) Diabetes Current Visit: Yes Status: Chronic Assessment and Plan: Hold PO medications coverage with low-dose correction sliding scale insulin. finger sticks Q6H (9) Chronic deep vein thrombosis (DVT) Current Visit: Yes Status: Acute Assessment and Plan: on coumadin for previous chronic DVT Coumadin being held secondary to bone biopsy procedure scheduled on 05/21/18 s/p 2 FFP 05/21/18 pre procedure will resume post procedure (10) DVT prophylaxis Current Visit: Yes Status: Acute Assessment and Plan: on coumadin for previous chronic DVT Coumadin being held secondary to bone biopsy procedure scheduled on 05/21/18 will resume post procedure - Time Spent with Patient Total time spent is greater than 50% in coordination of care (as documented) at patient's floor/unit and/or counseling patient: Internal Medicine: Result - Labs CBC & Chem 7: 05/21/18 04:35 05/19/18 03:15 Labs: Short CBC 05/21/18 Range/Units 04:35 WBC 5.5 (4.3-11.1) K/mcL Hgb 10.7 L (12.9-16.9) g/dL Hct 33.9 L (37.5-50.1) % Plt Count 183 (140-400) K/mcL Neutrophils # 1.5 L (1.6-8.9) K/mcL - ABG Interpretation ABG results: PT/INR, D-dimer PT 26.3 Seconds (9.4-12.1) H 05/21/18 04:35 Consult Discharge Plan - Plan Referrals: Naseem Jang, MANAGER PARTY [Primary Care Provider] - (2) Leukopenia Qualifiers: Leukopenia type: neutropenia (4) COPD (chronic obstructive pulmonary disease) Qualifiers: COPD type: chronic bronchitis Chronic bronchitis type: simple Qualified Code (s): J41.0 - Simple chronic bronchitis (6) Hypothyroidism Qualifiers: Hypothyroidism type: acquired Qualified Code(s): E03.9 - Hypothyroidism, unspecified (8) Diabetes Qualifiers: Diabetes mellitus type: type 2 Diabetes mellitus oysterman insulin use: without custodial use Diabetes mellitus complication status: without complication Qualified Code(s): E11.9 - Type 2 diabetes mellitus without complications
[2018-05-21] MEDS ORDERED: 0.9 % Sodium Chloride 250 ML ONE ×2 (11:48→12:58)
[2018-05-21 11:52] LABS: Alpha 2 Globulin (PEP) 0.75 g/dL (0.48-1.05); Beta Globulin (PEP) 0.77 g/dL (0.48-1.10)
[2018-05-21 12:44] LABS: INR 1.9; Prothrombin Time 21.9 Seconds (9.4-12.1)
[2018-05-21] MEDS ORDERED: *HR* FentaNYL (PF) 100 MCG/2 ML VIAL IVP ONE (14:39)
[2018-05-21] MEDS ORDERED: *HR* Midazolam HCl 2 MG/2 ML VIAL IVP ONE (14:39)
[2018-05-21] MEDS ORDERED: 0.9 % Sodium Chloride 500 ML ONE (14:42)
--- NOTE | 2018-05-21 15:08 | Oncology Inp Progress Note ---
Date of Encounter: 05/21/18 (1) Leukopenia Current Visit: Yes Status: Acute Assessment and plan: The anemia and leukopenia could be secondary to a low grade myelodysplastic syndrome. Marrow suppression secondary to drugs, toxins, radiation, marrow space occupying conditions, severe infections could also be possibilities. Abnormal processes involving bone marrow cannot be ruled out. If the leukopenia and anemia persist and the etiology is uncertain clinically, bone marrow examination may be helpful in further evaluating this patient. Clinical correlation is recommended. Qualifiers: Leukopenia type: neutropenia - Constitutional Vitals: Vital Signs Temp Pulse Resp BP Pulse Ox 05/21/18 15:04 59 18 112/59 91 05/21/18 14:57 59 14 109/58 05/21/18 14:13 97.7 F 61 16 137/89 94 05/21/18 13:32 97.8 F 64 15 136/84 93 05/21/18 13:17 97.7 F 69 16 132/76 93 05/21/18 12:51 97.7 F 69 16 132/76 93 05/21/18 12:21 97.8 F 82 16 128/77 94 05/21/18 12:06 97.5 F L 66 16 126/81 93 Intake and Output 05/20/18 05/21/18 05/21/18 23:59 07:59 15:59 Intake Total 660 / 660 Balance 660 / 560 Intake: Blood Product 660 / 660 Plasma Unit [id number] 335 / 335 Plasma Unit [id number] 325 / 325 Oncology: Obj Data - Labs CBC & Chem 7: 05/21/18 04:35 05/19/18 03:15 Labs: Laboratory Results - last 24 hr 05/21/18 12:04 PT 21.9 H INR 1.9 - ABG Interpretation ABG results: PT/INR, D-dimer PT 21.9 Seconds (9.4-12.1) H 05/21/18 12:04 Consult Discharge Plan - Plan Referrals: Naseem Jang CNP [Primary Care Provider] -
[2018-05-21 15:55] LABS: Mycoplasma pneumoniae IgG 2.76 U/L (<=0.09)
[2018-05-21 15:56] LABS: ANA IgG by ELISA DETECTED (None Detected); TSH Receptor Antibody <0.90 IU/L (<=1.75)
--- NOTE | 2018-05-21 16:05 | Event Note ---
Date of Encounter: 05/21/18 Time of Encounter: 16:02 spoke to patient he reports that he had DVT and subsequently PE >6 months ago and was started on coumadin. risk and benefits of stopping anticoagulation or restarting too soon was discussed. i discussed with him that since he had the procedure we will restart his coumadin tomorrow 05/22/18. he understands and agrees with the plan.
--- NOTE | 2018-05-21 18:08 | Oncology Inp Progress Note ---
Date of Encounter: 05/21/18 Time of Encounter: 18:00 (1) Pulmonary embolism on long-term anticoagulation therapy Current Visit: Yes Status: Acute Assessment and plan: He has history of DVT and pulmonary embolism. He will restart coumadin tomorrow. Will need f/u with PCP/coumadin clinic after d/c. (2) Polyarthralgia Current Visit: Yes Status: Acute Assessment and plan: Please place on a two week taper at time of discharge. Clinically improving. RF normal. ELEAZAR positive with titer pending. Etiology TBD (3) Leukopenia Current Visit: Yes Status: Acute Assessment and plan: He has had fluctuating cytopenias among all 3 lines in the past. Left shift with immature forms identified by smear. He has responded with prednisone with normalization of his WBC. Will f/u BM biopsy results next week in clinic. He may be d/c from my perspective. Qualifiers: Leukopenia type: neutropenia Neutropenia type: unspecified Qualified Code (s): D70.9 - Neutropenia, unspecified Oncology: Subj Interval history: Feeling much better today. Arthralgias nicely responded to steroids. 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 No fever, chills or infection. No cough or SOB. BM biopsy completed today without issue. - Constitutional Vitals: Vital Signs Temp Pulse Resp BP Pulse Ox 05/21/18 16:00 17 97 05/21/18 15:37 97.6 F 68 16 131/79 92 05/21/18 15:09 57 18 97/59 90 05/21/18 15:04 59 18 112/59 91 05/21/18 14:57 59 14 109/58 05/21/18 14:13 97.7 F 61 16 137/89 94 05/21/18 13:32 97.8 F 64 15 136/84 93 05/21/18 13:17 97.7 F 69 16 132/76 93 05/21/18 12:51 97.7 F 69 16 132/76 93 05/21/18 12:21 97.8 F 82 16 128/77 94 05/21/18 12:06 97.5 F L 66 16 126/81 93 Intake and Output 05/21/18 05/21/18 05/22/18 08:59 16:59 00:59 Intake Total 660 / 660 240 / 240 Balance 660 / 660 240 / 240 Intake: Oral 240 / 240 Blood Product 660 / 660 Plasma Unit [id number] 335 / 335 Plasma Unit [id number] 325 / 325 Other: Meal Dinner Percent of Meal Consumed 50% Blood Glucose* 129 General appearance: cooperative, no acute distress, obese - Head Head exam: Present: atraumatic, normal inspection, normocephalic - Eye Eye exam: Present: normal appearance, conjuntiva pink, sclera anicteric - ENT ENT exam: Present: mucous membranes moist, normal external ear exam, normal oropharynx - Neck Neck exam: Present: full ROM, normal inspection - Respiratory Respiratory exam: Present: CTAB - Cardiovascular Cardiovascular exam: Present: RRR - GI/Abdominal GI/Abdominal exam: Present: normal bowel sounds, soft - Extremities Exam Extremities exam: Present: joint swelling, normal inspection, pedal edema Additional comments: joint swelling improved - Skin Skin exam: Present: normal color Oncology: Obj Data - Labs CBC & Chem 7: 05/21/18 04:35 05/19/18 03:15 Labs: Laboratory Results - last 24 hr 05/21/18 05/21/18 12:04 16:16 PT 21.9 H INR 1.9 POC Glucose 129 H - ABG Interpretation ABG results: PT/INR, D-dimer PT 21.9 Seconds (9.4-12.1) H 05/21/18 12:04 Consult Discharge Plan - Plan Referrals: Naseem Jang INVESTMENT COUNSELOR [Primary Care Provider] -
--- NOTE | 2018-05-21 21:28 | Electrocardiograph Report ---
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
[2018-05-22] MEDS: *HR* HYDROcodone/Acet 5/325 mg TABLET PO PRN (02:43)
[2018-05-22 03:42] LABS: Hematocrit 35.4 % (37.5-50.1); Hemoglobin 11.3 g/dL (12.9-16.9); Mean Corpuscular HGB Conc 31.9 g/dL (31.6-35.5); Mean Corpuscular Hemoglobin 32.7 pg (28.0-33.3); Mean Corpuscular Volume 102.3 fL (83.0-100.0); Mean Platelet Volume 10.6 fL (9.4-12.4); Platelet Count 196 K/mcL (140-400); Red Blood Count 3.46 M/mcL (4.19-5.50); Red Cell Distribution Width 17.1 % (11.5-14.5)
[2018-05-22 03:47] LABS: INR 1.6; Prothrombin Time 18.2 Seconds (9.4-12.1)
[2018-05-22 04:01] LABS: BUN/Creatinine Ratio 36 (6-26); Blood Urea Nitrogen 24 mg/dL (8-23); Calcium 9.2 mg/dL (8.6-10.3); Carbon Dioxide 28 mEq/L (23-29); Chloride 103 mEq/L (98-107); Glucose 113 mg/dL (70-105); Osmolality,Calculated 287 (280-300); Potassium 3.8 mEq/L (3.5-5.1); Sodium 136 mEq/L (136-145); eGFR For Non-African Americans > 60 (> 60)
[2018-05-22 04:49] LABS: Eosinophils # 0.3 K/mcL (0.0-0.6); Lymphocytes # 0.9 K/mcL (0.6-4.6); Monocytes # 1.5 K/mcL (0.0-1.3); Neutrophils # 1.8 K/mcL (1.6-8.9)
[2018-05-22 04:50] LABS: Anisocytosis 1+ (Not Present); Macrocytosis Present (Not Present); Platelet Estimate Normal (Normal)
[2018-05-22 08:00] VITALS: BP 119/72
[2018-05-22 08:06] LABS: IFE Reflexed NOT DONE
[2018-05-22 08:11] LABS: MMA (VIT B12 STATUS) 0.21 umol/L (0.00-0.40)
[2018-05-22] MEDS: Insulin LISPRO 300 UNITS/3 ML VIAL SQ SCH (08:20)
[2018-05-22] MEDS ORDERED: Furosemide 40 MG TABLET PO SCH (09:00)
--- NOTE | 2018-05-22 09:17 | Discharge Summary ---
- NOTES TO OUTPATIENT PROVIDER Notes to Outpatient Provider: follow up with hematology and oncology for BM biopsy results. follow up with coumadin clinic 05/23/18- for INR check adn to adjust coumadin. follow CBC for pancytopenia. follow glucose level he is on steroids Orders not resulted at time of discharge: Pending orders 05/21/18 CT guided aspiration [CT] Routine 05/21/18 15:15 Bone Marrow, Flow & Cytogen Routine Date of Encounter: 05/22/18 Time of Encounter: 09:11 - Discharge Diagnosis (1) Polyarthralgia Priority: Primary Status: Acute (2) Leukopenia Priority: Secondary Status: Acute Qualifiers: Leukopenia type: neutropenia Neutropenia type: unspecified Qualified Code (s): D70.9 - Neutropenia, unspecified (3) Macrocytic anemia Priority: Secondary Status: Acute (4) COPD (chronic obstructive pulmonary disease) Priority: Secondary Status: Chronic Qualifiers: COPD type: chronic bronchitis Chronic bronchitis type: simple Qualified Code(s): J41.0 - Simple chronic bronchitis (5) (HFpEF) heart failure with preserved ejection fraction Priority: Secondary Status: Acute (6) Hypothyroidism Priority: Secondary Status: Chronic Qualifiers: Hypothyroidism type: acquired Qualified Code(s): E03.9 - Hypothyroidism, unspecified (7) Morbid obesity Priority: Secondary Status: Chronic (8) Diabetes Priority: Secondary Status: Chronic Qualifiers: Diabetes mellitus type: type 2 Diabetes mellitus terminal operations manager insulin use: without terminal operations manager use Diabetes mellitus complication status: without complication Qualified Code(s): E11.9 - Type 2 diabetes mellitus without complications (9) Chronic deep vein thrombosis (DVT) Priority: Secondary Status: Acute Qualifiers: Laterality: unspecified laterality Qualified Code(s): I82.509 - Chronic embolism and thrombosis of unspecified deep veins of unspecified lower extremity (10) DVT prophylaxis Priority: Secondary Status: Acute (11) Current every day smoker Priority: Secondary Status: Acute Hospital course: Mr. Mullen is a 62 year old male with a history of staphylococcal pneumonia approximately one year ago as well as DVT/PE on chronic anticoagulation who presents with a four-day history of polyarticular arthralgias and swelling involving the hands, hips, shoulder and feet. Initially he was admitted for acute CHF exacerbation and was started on IV Lasix. Basic labs on admission showed bicytopenia with leukopenia 2.2 and macrocytic anemia 12.5. Echocardiogram (full report below) was done which showed LVEF of 55% and mild diastolic dysfunction. Hematology and oncology was consulted for bicytopenia. As per hematology and oncology he has had fluctuating cytopenias among all 3 lines in the past And there was concern for underlying MDS. Other considerations include leukemia, myelofibrosis, LGL leukemia, hairy cell leukemia among other non-hematologic causes. B12 and folic acid levels were normal. Thyroid studies were performed and they were within normal limit. LDH was slightly elevated. ESR and CRP levels were sent which were elevated. Rheumatoid factor was sent which was within normal limit. Peripheral smear was performed which showed left shift with immature forms. Bone marrow biopsy was performed on 05/21/2018. ELEAZAR was positive with titer pending. Etiology of his polyarthralgia remained to be determined as bone marrow biopsy results are pending. He was started on prednisone with improvement of his polyarthralgia and it was recommended by hematology oncology to taper off in 2 weeks. Prescription was provided with prednisone taper to the patient. Coumadin was held for bone marrow biopsy. It was resumed at 05/22/2018 and he was told to have his INR checked on 05/23 at his Coumadin clinic to have his Coumadin adjusted based on the INR results. He was started on beta blockers which he tolerated. He is to follow-up with hematology and oncology for biopsy results next week, appointment was provided. He was counseled on smoking cessation. Nutrition, weight loss counseling was provided. He was told to follow-up his blood glucose as he is on steroids which can increase his blood glucose level. He understands and he will follow-up with his primary care [facility]; Technically sub-optimal due to body habitus. LVEF 55%. Normal LV wall thickness and function. Mildly dilated left ventricle. Mild left ventricular diastolic dysfunction. Mildly dilated right ventricle with normal function. No evidence of pulmonary hypertension identified. RVSP not well obtained and could be underestimated. No significant valvular dysfunction. CXR: IMPRESSION: 1. Cardiomegaly with mild vascular congestion. Discharge discussed with: patient, nurse, organization development consultant Time spent discussing smoking cessation with patient: 3 to 10 minutes - Time Spent with Patient Total time spent providing and/or coordinating discharge services: Less than 30 minutes - Discharge Medications Prescriptions: Metoprolol [Lopressor] 12.5 mg PO BID #30 tablet Pantoprazole Sodium [Protonix] 20 mg PO DAILY #30 tab Home Medications: metFORMIN [Glucophage] 500 mg PO DAILY 03/29/17 [History] Acetaminophen [Tylenol] 650 mg PO Q4-6H PRN 03/30/17 [History] Albuterol Sulfate [Ventolin Hfa] 2 puff IH Q4-6H PRN 03/30/17 [History] Budesonide/Formoterol 160/4.5 [Symbicort 160/4.5] 2 puff IH BIDR 03/30/17 [ History] Guaifenesin [Mucinex] 600 mg PO DAILY PRN 03/30/17 [History] Clopidogrel [Plavix] 75 mg PO DAILY 05/18/18 [History] Furosemide [Lasix] 40 mg PO DAILY 05/18/18 [History] Levothyroxine Sodium [Synthroid] 200 mcg PO DAILY 05/18/18 [History] Levothyroxine [Synthroid] 50 mcg PO 0630 05/18/18 [History] Naproxen [Naprosyn] 500 mg PO BID 05/18/18 [History] Warfarin [Coumadin] 15 mg PO MOWEFR 05/18/18 [History] Warfarin [Coumadin] 17.5 mg PO SUTUTHSA 05/18/18 [History] Metoprolol [Lopressor] 12.5 mg PO BID #30 tablet 05/22/18 [Rx] Pantoprazole Sodium [Protonix] 20 mg PO DAILY #30 tab 05/22/18 [Rx] Allergies/Adverse Reactions: 3 Allergy/AdvReac Type Severity Reaction Status Date / Time No Known Allergies Allergy Verified 05/18/18 12:26 Date of admission: 05/21/18 11:58 Primary care physician: Naseem Jang CNP - Constitutional Vitals: Temp Pulse Resp BP Pulse Ox 99.1 F 89 18 119/72 93 05/22/18 07:59 05/22/18 07:59 05/22/18 07:59 05/22/18 07:59 05/22/18 07:59 General appearance: Present: cooperative, mild distress (Edema/SOB), A&O X 3, morbidly obese, pleasant, answers questions appropriately Exam: General: Patient is alert, oriented, no acute distress, morbidly obese Head: atraumatic, normocephalic, Eye: normal appearance, PERRL, no scleral icterus, no conjunctival injection ENT: mucous membranes moist, normal external ear exam Neck: normal inspection, trachea midline, full ROM, no carotid bruits Chest: normal inspection, symmetric chest rise Respiratory: Good respiratory effort. Bilateral breath sounds are clear without wheezing, crackles, or rhonchi. Cardiovascular: Regular rate and rhythm. s1 and s2 No clicks, rubs, gallops, or murmors. Abdomen: Bowel sounds present normoactive x-4 quadrants. Abdomen is soft, nondistended. no Epigastric tenderness. No guarding or rebound. No organomegaly noted, obese musculoskeletal: Spontaneously moving all extremities. +1 edema, of the hands and LE no calf tenderness Skin: warm, dry, intact. Neuro: Alert and oriented x4. Sensation light touch intact. Cranial nerves 2- 12 is intact. Not aphasic, gait is steady, rapid hand movements intact, finger- to-nose intact, Psych: Patient's affect is normal - Patient Status Disposition: Home, Self-Care Condition: Good Functional capacity at discharge: uses cane/walker Overall status at discharge: patient is progressing back to baseline - Discharge Instructions Follow Up With: Naseem Jang CNP [Primary Care Provider] - 05/28/18 1:45 pm (Please follow up as schedule) - Diet and Activity Activity: increase activity as tolerated Diet: diabetic diet
[2018-05-22] MEDS: Budesonide/Formoterol 160/4.5 1 PUFF INH IH SCH (09:50)
[2018-05-22] MEDS: predniSONE 20 MG TABLET PO SCH (10:20)
[2018-05-22] MEDS ORDERED: *HR* Warfarin 10 MG TABLET PO ONE (18:00)
== END 2018-05-22 11:03 | disposition home or self-care (01) | DRG 802 ==
LOC: 2ANU 07:41 → EMEROOARM 07:41 → SUATTDRO 12:32 → 2ANU 12:52
PROVIDERS: ADMIT Student in an Organized Health Care Education/Training Program; ATTEND Internal Medicine

== ENCOUNTER 2020-02-16 12:32 | Inpatient (IN) ==
[2020-02-16] MEDS ORDERED: 0.9 % Sodium Chloride 500 ML IVC ONE (12:46)
[2020-02-16] MEDS ORDERED: Ondansetron 4 MG/2 ML VIAL IVP ONE (12:46)
[2020-02-16] MEDS ORDERED: 0.9 % Sodium Chloride 1,000 ML IVC STA (13:04)
[2020-02-16 13:23] LABS: Hematocrit 18.2 % (37.5-50.1); Hemoglobin 6.1 g/dL (12.9-16.9); Mean Corpuscular HGB Conc 33.5 g/dL (31.6-35.5); Mean Corpuscular Hemoglobin 31.9 pg (28.0-33.3); Mean Corpuscular Volume 95.3 fL (83.0-100.0); Mean Platelet Volume 9.5 fL (9.4-12.4); Red Blood Count 1.91 M/mcL (4.19-5.50)
[2020-02-16 13:24] LABS: Platelet Count 40 K/mcL (140-400)
[2020-02-16 13:38] LABS: Anisocytosis 1+ (Not Present); Eosinophils # 0.2 K/mcL (0.0-0.6); Lymphocytes # 0.6 K/mcL (0.6-4.6); Monocytes # 0.8 K/mcL (0.0-1.3); Neutrophils # 6.2 K/mcL (1.6-8.9); Platelet Estimate Marked Decrease (Normal)
[2020-02-16 13:43] LABS: Alanine Aminotransferase 11 Units/L (7-52); Albumin 3.4 g/dL (3.5-5.7); Alkaline Phosphatase 81 Units/L (34-104); Aspartate Amino Transferase 14 Units/L (13-39); BUN/Creatinine Ratio 17 (6-26); Bilirubin,Direct 0.2 mg/dL (0.0-0.2); Bilirubin,Indirect 0.5 mg/dL (0.0-1.0); Bilirubin,Total 0.7 mg/dL (0.3-1.0); Blood Urea Nitrogen 75 mg/dL (8-23); Calcium 8.1 mg/dL (8.6-10.3); Carbon Dioxide 22 mEq/L (23-29); Chloride 96 mEq/L (98-107); Globulin 3.4 g/dL (2.4-3.5); Glucose 106 mg/dL (70-105); Osmolality,Calculated 287 (280-300); Potassium 5.1 mEq/L (3.5-5.1); Sodium 127 mEq/L (136-145); Total Protein 6.8 g/dL (6.4-8.9); Troponin I < 0.03 ng/mL (< 0.04); eGFR For African Americans 17 (> 60); eGFR For Non-African Americans 14 (> 60)
[2020-02-16] MEDS ORDERED: 0.9 % Sodium Chloride 1,000 ML IVC ONE (15:35)
[2020-02-16 17:01] LABS: Creatine Kinase 89 Units/L (30-223); Lactate Dehydrogenase 262 Units/L (140-271)
[2020-02-16] MEDS ORDERED: RASBURICASE IV ONE (17:23)
[2020-02-16] MEDS ORDERED: SODIUM CHLORIDE 0.9% IV ONE (17:23)
[2020-02-16] MEDS ORDERED: Naloxone 0.4 MG/ML INJ IVP PRN (17:28)
[2020-02-16 17:42] LABS: Phosphorous 3.7 mg/dL (2.7-4.5)
[2020-02-16] MEDS ORDERED: 0.9 % Sodium Chloride 500 ML IVC SCH (18:15)
[2020-02-16] MEDS: Hydrocortisone Sodium Succ 100 MG/2 ML VIAL IVP SCH (18:37)
[2020-02-16] MEDS: levoFLOXacin 750 MG/150 ML 750 MG/150 ML BAG IVPB SCH (18:37)
[2020-02-16] MEDS ORDERED: Dextrose Gel 15 GM/37.5 ML TUBE PO PRN ×2 (19:21)
[2020-02-16] MEDS ORDERED: D5% in Water 1,000 ML IVC PRN (19:21)
[2020-02-16] MEDS ORDERED: *HR* Dextrose 50 % in Water (Syg) 50 ML SYRINGE IVP PRN (19:21)
[2020-02-16 20:10] LABS: Estimated Average Glucose 128 mg/dl
[2020-02-16] MEDS: Insulin LISPRO 300 UNITS/3 ML VIAL SQ SCH (20:16)
[2020-02-16] MEDS: Nicotine 21 MG PATCH.TD24 TD SCH (20:21)
[2020-02-16 20:45] LABS: Bilirubin,Urine Small (Negative); Blood,Urine Negative (Negative); Clarity,Urine Cloudy (Clear); Color,Urine Dark Yellow (Yellow); Glucose,Urine (UA) Normal (Normal); Ketones,Urine Trace mg/dL (Negative); Leukocyte Esterase,Urine Negative (Negative); Nitrite,Urine Negative (Negative); PH,Urine 5.5 pH Units (5.0-8.0); Protein,Urine Trace mg/dL (Neg-Trace); Specific Gravity,Urine 1.018 (1.010-1.025); Urobilinogen,Urine Normal (Normal)
[2020-02-16 20:48] LABS: Bacteria,Urine None Seen per hpf (None-Few); Hyaline Casts,Urine Few per lpf (None-Few); Squamous Epithelial Cell,Urine Moderate per lpf (None-Few); WBC,Urine 0-3 per hpf (0-3)
[2020-02-16] MEDS ORDERED: 0.9 % Sodium Chloride 250 ML ONE (22:45)
[2020-02-17] MEDS ORDERED: Piperacillin/Tazobactam 3.375 GM in 0.9 % Sodium Chloride Mini Bag 100 ML IVPB SCH
[2020-02-17] MEDS ORDERED: 0.9 % Sodium Chloride 250 ML ONE ×3 (02:07→23:53)
[2020-02-17] MEDS: Magic Mouthwash 10 ML UD Cup PO SCH ×4 (02:16→17:37)
[2020-02-17] MEDS: Hydrocortisone Sodium Succ 100 MG/2 ML VIAL IVP SCH ×4 (02:16→17:37)
[2020-02-17 02:20] LABS: Eosinophils # 0.1 K/mcL (0.0-0.6); Eosinophils % 2.2 %; Hematocrit 16.9 % (37.5-50.1); Immature Granulocytes % 4.6 % (0-4); Immature Platelets 2.1 % (1.1-6.1); Lymphocytes # 0.9 K/mcL (0.6-4.6); Lymphocytes % 19.2 %; Mean Corpuscular Hemoglobin 31.6 pg (28.0-33.3); Mean Corpuscular Volume 98.8 fL (83.0-100.0); Monocytes # 0.9 K/mcL (0.0-1.3); Neutrophils # 2.5 K/mcL (1.6-8.9); Red Blood Count 1.71 M/mcL (4.19-5.50); Red Cell Distribution Width 20.1 % (11.5-14.5); White Blood Count 4.5 K/mcL (4.3-11.1)
[2020-02-17 02:29] LABS: Platelet Count 42 K/mcL (140-400)
[2020-02-17 02:31] LABS: Hemoglobin 5.4 g/dL (12.9-16.9)
[2020-02-17 02:34] LABS: Albumin 2.9 g/dL (3.5-5.7); Bilirubin,Total 0.5 mg/dL (0.3-1.0); Calcium 7.2 mg/dL (8.6-10.3); Globulin 2.9 g/dL (2.4-3.5); Magnesium 2.3 mg/dL (1.6-2.6); Potassium 4.7 mEq/L (3.5-5.1); Total Protein 5.8 g/dL (6.4-8.9)
[2020-02-17 02:35] LABS: Iron 115 mcg/dL (65-175)
[2020-02-17 02:50] LABS: Ferritin > 1500 ng/mL (20-250)
[2020-02-17 03:10] LABS: Folate > 22.3 ng/mL (3.0-16.0); Vitamin B12 > 1500 pg/mL (250-1100)
[2020-02-17 04:01] LABS: Platelet Estimate Decreased (Normal)
[2020-02-17 04:32] LABS: Sodium, Urine 22.9 mEq/L
[2020-02-17 06:39] LABS: Hematocrit 19.7 % (37.5-50.1); Hemoglobin 6.4 g/dL (12.9-16.9)
[2020-02-17] MEDS: Nicotine 21 MG PATCH.TD24 TD SCH (07:37)
[2020-02-17] MEDS: Fluconazole 200 MG/100 ML 200 MG/100 ML BAG IVPB SCH (07:38)
[2020-02-17] MEDS: Insulin LISPRO 300 UNITS/3 ML VIAL SQ SCH ×3 (08:26→17:38)
[2020-02-17] MEDS ORDERED: Albumin 25% 25gram/100mL 25 GM/100 ML IV.SOLN IVPB ONE (08:56)
[2020-02-17] MEDS ORDERED: 0.9 % Sodium Chloride 1,000 ML IVC SCH (09:00)
[2020-02-17] MEDS: Acetaminophen 325 MG TABLET PO PRN ×2 (10:56→21:21)
[2020-02-17 14:24] LABS: Hematocrit 19.4 % (37.5-50.1); Hemoglobin 6.3 g/dL (12.9-16.9)
[2020-02-17] MEDS: *HR* OxyCODONE Immed Rel 5 MG TABLET PO PRN (15:16)
[2020-02-17] MEDS ORDERED: *HR* Dabigatran 75 MG CAPSULE PO SCH (21:00)
[2020-02-18] MEDS: *HR* OxyCODONE Immed Rel 5 MG TABLET PO PRN ×3 (00:09→20:58)
[2020-02-18] MEDS: Hydrocortisone Sodium Succ 100 MG/2 ML VIAL IVP SCH ×3 (00:09→17:19)
[2020-02-18 01:22] LABS: Hematocrit 19.2 % (37.5-50.1); Hemoglobin 6.3 g/dL (12.9-16.9)
[2020-02-18 05:45] LABS: Hemoglobin 6.6 g/dL (12.9-16.9); Mean Corpuscular Hemoglobin 30.8 pg (28.0-33.3); Red Blood Count 2.14 M/mcL (4.19-5.50)
[2020-02-18 05:47] LABS: Hematocrit 20.3 % (37.5-50.1); Immature Platelets 2.2 % (1.1-6.1); Mean Corpuscular HGB Conc 32.5 g/dL (31.6-35.5); Mean Corpuscular Volume 94.9 fL (83.0-100.0); Mean Platelet Volume 9.3 fL (9.4-12.4); Red Cell Distribution Width 18.9 % (11.5-14.5); White Blood Count 2.1 K/mcL (4.3-11.1)
[2020-02-18 06:02] LABS: Calcium 8.1 mg/dL (8.6-10.3); Potassium 4.3 mEq/L (3.5-5.1)
[2020-02-18] MEDS: Insulin LISPRO 300 UNITS/3 ML VIAL SQ SCH ×3 (07:31→16:09)
[2020-02-18] MEDS: Fluconazole 200 MG/100 ML 200 MG/100 ML BAG IVPB SCH (07:46)
[2020-02-18] MEDS: Magic Mouthwash 10 ML UD Cup PO SCH ×3 (07:46→16:14)
[2020-02-18] MEDS: Nicotine 21 MG PATCH.TD24 TD SCH (07:47)
[2020-02-18] MEDS ORDERED: 0.9 % Sodium Chloride 250 ML IVC SCH (08:15)
[2020-02-18] MEDS: Finasteride 5 MG TABLET PO SCH (09:00)
[2020-02-18] MEDS ORDERED: Furosemide 40 MG TABLET PO SCH (09:00)
[2020-02-18] MEDS ORDERED: Pantoprazole 40 MG VIAL IVP SCH (10:45)
[2020-02-18] MEDS: levoFLOXacin 750 MG/150 ML 750 MG/150 ML BAG IVPB SCH (17:19)
[2020-02-18 18:42] LABS: Hematocrit 23.2 % (37.5-50.1); Hemoglobin 7.4 g/dL (12.9-16.9); Mean Corpuscular HGB Conc 31.9 g/dL (31.6-35.5); Mean Corpuscular Hemoglobin 30.5 pg (28.0-33.3); Mean Corpuscular Volume 95.5 fL (83.0-100.0); Mean Platelet Volume 9.7 fL (9.4-12.4); Red Blood Count 2.43 M/mcL (4.19-5.50); Red Cell Distribution Width 18.7 % (11.5-14.5)
[2020-02-18 18:44] LABS: Platelet Count 53 K/mcL (140-400)
[2020-02-18] MEDS: Pantoprazole 40 MG VIAL IVP SCH (20:50)
[2020-02-19 05:08] LABS: Mean Corpuscular Volume 97.3 fL (83.0-100.0)
[2020-02-19 05:10] LABS: Hematocrit 21.7 % (37.5-50.1); Hemoglobin 6.8 g/dL (12.9-16.9); Immature Platelets 2.3 % (1.1-6.1); Mean Corpuscular HGB Conc 31.3 g/dL (31.6-35.5); Mean Corpuscular Hemoglobin 30.5 pg (28.0-33.3); Mean Platelet Volume 10.5 fL (9.4-12.4); Red Blood Count 2.23 M/mcL (4.19-5.50); Red Cell Distribution Width 18.7 % (11.5-14.5); White Blood Count 1.7 K/mcL (4.3-11.1)
[2020-02-19 05:26] LABS: BUN/Creatinine Ratio 27 (6-26); Blood Urea Nitrogen 28 mg/dL (8-23); Calcium 8.3 mg/dL (8.6-10.3); Carbon Dioxide 25 mEq/L (23-29); Chloride 108 mEq/L (98-107); Glucose 89 mg/dL (70-105); Osmolality,Calculated 291 (280-300); Sodium 138 mEq/L (136-145); eGFR For African Americans > 60 (> 60); eGFR For Non-African Americans > 60 (> 60)
[2020-02-19 05:27] LABS: Platelet Count 54 K/mcL (140-400)
[2020-02-19 05:40] LABS: Neutrophils # 0.7 K/mcL (1.6-8.9); Platelet Estimate Decreased (Normal)
[2020-02-19] MEDS: Hydrocortisone Sodium Succ 100 MG/2 ML VIAL IVP SCH ×2 (06:22→17:46)
[2020-02-19] MEDS: *HR* OxyCODONE Immed Rel 5 MG TABLET PO PRN ×2 (06:23→20:16)
[2020-02-19] MEDS: Insulin LISPRO 300 UNITS/3 ML VIAL SQ SCH ×3 (07:48→17:37)
[2020-02-19] MEDS: allopurinoL 300 MG TABLET PO SCH (08:47)
[2020-02-19] MEDS: Finasteride 5 MG TABLET PO SCH (08:47)
[2020-02-19] MEDS: Pantoprazole 40 MG VIAL IVP SCH ×2 (08:47→20:16)
[2020-02-19] MEDS: Fluconazole 200 MG/100 ML 200 MG/100 ML BAG IVPB SCH (08:47)
[2020-02-19] MEDS: Nicotine 21 MG PATCH.TD24 TD SCH (08:47)
[2020-02-19] MEDS: Magic Mouthwash 10 ML UD Cup PO SCH ×3 (10:22→17:46)
[2020-02-19] MEDS ORDERED: Lidocaine -MPF 2% 2 ML VIAL ONE (15:53)
[2020-02-19] MEDS ORDERED: Dexamethasone 4 MG/ML VIAL ONE (15:53)
[2020-02-19] MEDS ORDERED: Ondansetron 4 MG/2 ML VIAL ONE (15:53)
[2020-02-19] MEDS ORDERED: *HR* Propofol 200 MG/20 ML VIAL IVP ONE (15:53)
[2020-02-19] MEDS ORDERED: *HR* Rocuronium Bromide 50 MG/5 ML VIAL ONE (15:53)
[2020-02-19] MEDS ORDERED: Ondansetron 4 MG/2 ML VIAL IVP ONE (16:46)
[2020-02-19 19:55] LABS: Hematocrit 24.7 % (37.5-50.1)
[2020-02-20] MEDS: Hydrocortisone Sodium Succ 100 MG/2 ML VIAL IVP SCH (05:50)
[2020-02-20 06:17] LABS: Immature Granulocytes % 1.4 % (0-4)
[2020-02-20 06:19] LABS: Eosinophils % 1.4 %; Hematocrit 23.1 % (37.5-50.1); Hemoglobin 7.3 g/dL (12.9-16.9); Immature Platelets 2.1 % (1.1-6.1); Lymphocytes # 0.4 K/mcL (0.6-4.6); Lymphocytes % 56.8 %; Mean Corpuscular HGB Conc 31.6 g/dL (31.6-35.5); Mean Corpuscular Hemoglobin 29.8 pg (28.0-33.3); Mean Corpuscular Volume 94.3 fL (83.0-100.0); Mean Platelet Volume 9.9 fL (9.4-12.4); Monocytes # 0.2 K/mcL (0.0-1.3); Monocytes % 28.4 %; Neutrophils # 0.1 K/mcL (1.6-8.9); Red Blood Count 2.45 M/mcL (4.19-5.50)
[2020-02-20 06:24] LABS: Platelet Count 48 K/mcL (140-400)
[2020-02-20 06:26] LABS: White Blood Count 0.7 K/mcL (4.3-11.1)
[2020-02-20 06:36] LABS: Alanine Aminotransferase 18 Units/L (7-52); Albumin 3.3 g/dL (3.5-5.7); Alkaline Phosphatase 69 Units/L (34-104); Aspartate Amino Transferase 15 Units/L (13-39); BUN/Creatinine Ratio 27 (6-26); Bilirubin,Total 0.7 mg/dL (0.3-1.0); Blood Urea Nitrogen 22 mg/dL (8-23); Calcium 8.5 mg/dL (8.6-10.3); Carbon Dioxide 23 mEq/L (23-29); Chloride 108 mEq/L (98-107); Globulin 3.3 g/dL (2.4-3.5); Glucose 140 mg/dL (70-105); Osmolality,Calculated 290 (280-300); Potassium 4.8 mEq/L (3.5-5.1); Sodium 137 mEq/L (136-145); Total Protein 6.6 g/dL (6.4-8.9); eGFR For African Americans > 60 (> 60); eGFR For Non-African Americans > 60 (> 60)
[2020-02-20 06:39] LABS: Anisocytosis 2+ (Not Present); Microcytosis Present (Not Present); Platelet Estimate Decreased (Normal)
[2020-02-20 07:21] VITALS: BP 109/64
[2020-02-20] MEDS: Pantoprazole 40 MG VIAL IVP SCH (07:58)
[2020-02-20] MEDS: allopurinoL 300 MG TABLET PO SCH (07:58)
[2020-02-20] MEDS: Magic Mouthwash 10 ML UD Cup PO SCH (07:58)
[2020-02-20] MEDS: Nicotine 21 MG PATCH.TD24 TD SCH (07:58)
[2020-02-20] MEDS: Finasteride 5 MG TABLET PO SCH (07:58)
[2020-02-20] MEDS: Fluconazole 200 MG/100 ML 200 MG/100 ML BAG IVPB SCH (07:59)
[2020-02-20] MEDS: Insulin LISPRO 300 UNITS/3 ML VIAL SQ SCH (07:59)
[2020-02-20] MEDS ORDERED: levoFLOXacin 500 MG/100 ML 500 MG/100 ML BAG IVPB SCH (11:00)
== END 2020-02-20 12:56 | disposition home health service (06) | DRG 808 ==
LOC: 2NNU 12:32 → EMEROOARM 12:32 → SUATTDRO 16:23 → 2NNU 17:20
PROVIDERS: ADMIT Internal Medicine; ATTEND Pharmacist